=== PATIENT | male | born 1935 | race African-American/Black ===

== ENCOUNTER 2019-03-29 15:57 | Inpatient (IN) | payer MEDICARE, OTHER ==
[~2019-03-29] VITALS: Ht 162.6 cm; Wt 57.9 kg
[2019-03-29] MEDS ORDERED: SOD CHLORIDE 0.9% 1,000 ML IV STA (16:30)
[2019-03-29] MEDS ORDERED: KETOROLAC 15 MG INJ IV STA (16:30)
[2019-03-29] MEDS ORDERED: ACET325T45 PO (16:38)
[2019-03-29] MEDS ORDERED: AMAN100C96 PO (16:38)
[2019-03-29] MEDS ORDERED: MAGN400O19 PO (16:42)
[2019-03-29] MEDS ORDERED: DEXT1DRO7 BOTH EYES (16:42)
[2019-03-29] MEDS ORDERED: BISA10SU55 RC (16:43)
[2019-03-29] MEDS ORDERED: NA P230E RC (16:44)
[2019-03-29] MEDS ORDERED: DOCU-144 PO (16:44)
[2019-03-29] MEDS ORDERED: CYAN100080 PO (16:45)
[2019-03-29] MEDS ORDERED: DICL100G37 TOP (16:45)
[2019-03-29] MEDS ORDERED: DIGO125T19 PO (16:46)
[2019-03-29] MEDS ORDERED: DONE10TA7 PO (16:46)
[2019-03-29] MEDS ORDERED: FINA5TAB4 PO (16:47)
[2019-03-29] MEDS ORDERED: FLUT16SP17 NASAL (16:48)
[2019-03-29] MEDS ORDERED: OMEG-135 PO (16:48)
[2019-03-29] MEDS ORDERED: GUAI-352 PO (16:49)
[2019-03-29] MEDS ORDERED: LISI2.5T59 PO (16:50)
[2019-03-29] MEDS ORDERED: LORA10TA3 PO (16:51)
[2019-03-29] MEDS ORDERED: MELA3TAB17 PO (16:53)
[2019-03-29] MEDS ORDERED: METO2.5T PO (16:54)
[2019-03-29] MEDS ORDERED: OMEP20CA16 PO (16:55)
[2019-03-29] MEDS ORDERED: POLY17PO28 PO (16:55)
[2019-03-29] MEDS ORDERED: METO-448 PO (16:55)
[2019-03-29] MEDS ORDERED: TAMS-14 PO (16:56)
[2019-03-29] MEDS ORDERED: TRAM50TA PO (16:57)
[2019-03-29] MEDS ORDERED: THIA100T56 PO (16:57)
[2019-03-29] MEDS ORDERED: ASC500 PO (16:58)
[2019-03-29] MEDS ORDERED: CHOL100062 PO (16:58)
[2019-03-29] MEDS ORDERED: ASPIRIN 81 MG TAB PO ONE (18:00)
--- NOTE | 2019-03-29 18:01 | ERD ---
ER Documentation Chief Complaint Chief Complaint LEFT SHOULDER PAIN HPI 83-year-old man with history of dementia and Parkinson's brought in by EMS from assisted for left shoulder pain. Patient is difficult to understand the HPI was supplemented by reviewing past medical history, reviewing assisted records, and speaking to EMS. Patient has had no fevers or chills, no vomiting or diarrhea. ROS All systems reviewed and are negative except as per history of present illness. Medications Home Meds Reported Medications Cholecalciferol* (Vitamin D3*) 1,000 Unit Tablet, 2000 UNIT PO DAILY, TAB 03/29/19 Ascorbic Acid (Vitamin C) 500 Mg Tab, 500 MG PO DAILY, TAB 03/29/19 Thiamine* (Vitamin B-1*) 100 Mg Tablet, 100 MG PO DAILY, TAB 03/29/19 Tramadol Hcl* (Ultram*) 50 Mg Tablet, 50 MG PO BID PRN for PAIN, TAB 03/29/19 Tamsulosin Hcl* (Flomax*) 0.4 Mg Cap.er.24h, 0.4 MG PO HS, CAP 03/29/19 Polyethylene Glycol* (Polyethylene Glycol*) 17 Gm Powd.pack, 17 GM PO DAILY, #30 PACKET 03/29/19 Omeprazole* (Omeprazole*) 20 Mg Capsule.dr, 20 MG PO QAM, #30 CAP 03/29/19 Metoprolol Tartrate* (Lopressor*) 25 Mg Tab, 25 MG PO Q12H, #60 TAB HOLD FOR SBP<110 OR HR<60 03/29/19 Metolazone* (Metolazone*) 2.5 Mg Tablet, 2.5 MG PO DAILY, TAB HOLD FOR SBP<110 03/29/19 Melatonin (Melatonin) 3 Mg Tablet.sa, 6 MG PO HS, TAB.SA 03/29/19 Loratadine* (Loratadine*) 10 Mg Tablet, 10 MG PO DAILY, #30 TAB FOR 3 MONTH, STOP DATE 06/26/19 03/29/19 Lisinopril* (Lisinopril*) 2.5 Mg Tablet, 2.5 MG PO DAILY, #30 TAB HOLD IF SBP BELOW 110 03/29/19 Guaifenesin (HILL-[place]USSIN) 100 Mg/5 Ml Liquid, 100 MG PO Q4H 03/29/19 Fluticasone Propionate* (Fluticasone Propionate* Nasal) 50 Mcg/[place] - 16 Gm [place].susp, 2 SPRAYS NASAL DAILY, #1 BOTTLE TO EACH NOSTRIL FOR 3 MONTH, STOP DATE 06/26/19 03/29/19 [place]-3 Fatty Acids/Fish Oil (Fish Oil 1,000 mg Capsule) 1 Each Capsule, 1 EACH PO DAILY, CAP 03/29/19 Finasteride* (Finasteride*) 5 Mg Tablet, 5 MG PO QHS, TAB 03/29/19 Donepezil* (Donepezil*) 10 Mg Tablet, 10 MG PO QHS, #30 TAB 03/29/19 Digoxin* (Digox*) 125 Mcg Tablet, 0.125 MG PO DAILY, TAB 03/29/19 Diclofenac Sodium* (Voltaren* Gel) 1% -100 Gm Gel, 2 GM TOP Q12H, #1 TUB 03/29/19 Cyanocobalamin* (Vitamin B-12*) 1,000 Mcg Tablet.sa, 1000 MCG PO DAILY, TAB 03/29/19 Docusate Sodium* (Colace*) 100 Mg Capsule, 100 MG PO BID, #60 CAP 03/29/19 Na Phos,M-B/Na Phos,Di-Ba (Fleet Enema Extra) 230 Ml Enema, 118 ML RC Q 3D, ENEMA 03/29/19 Bisacodyl (Dulcolax) 10 Mg Supp.rect, 10 MG RC NEEDED, SUPP.RECT 03/29/19 Magnesium Hydroxide* (Milk Of Magnesia*) 400 Mg/5 Ml Oral.susp, 30 ML PO Q24H PRN for NEEDED, ML 03/29/19 Dextran 70/Hypromellose/Pf (ARTIFICIAL TEARS DROPS) 1 Each Droperette, 1 EACH BOTH EYES TID 03/29/19 Amantadine Hcl* (Amantadine Hcl*) 100 Mg Capsule, 100 MG PO Q12H, #60 CAP 03/29/19 Acetaminophen* (Acetaminophen*) 325 Mg Tablet, 650 MG PO Q6H PRN for PAIN LEVEL 4-7/10, #30 TAB 03/29/19 Allergies Allergies: Coded Allergies: simvastatin (Unverified Allergy, Unknown, 03/29/19) PMhx/Soc Dementia, hypertension, CAD, Parkinson's Hx Cardiac Disorders: Yes (cad, htn, dvt, chf) Hx Alcohol Use: No (unk) Hx Substance Use: No (unk) Hx Tobacco Use: No (unk) Smoking Status: Never smoker FmHx Family History: No diabetes Physical Exam Vitals Vital Signs Date Temp Pulse Resp B/P (MAP) Pulse Ox O2 O2 Flow FiO2 Time Delivery Rate 03/29/19 98.1 84 18 95/45 (62) 99 16:25 Physical Exam Const: Moderate discomfort, afebrile Resp: Clear to auscultation bilaterally Cardio: Regular rate and rhythm, no murmurs Abd: Soft, non tender, non distended. Normal bowel sounds Skin: No petechiae or rashes Back: No midline or flank tenderness Ext: No cyanosis, or edema, distal pulses equal bilateral, calves symmetrical, mild tenderness over the left anterior shoulder without deformity Neur: Eyes open, garbled speech, moving all extremities, pupils equal round reactive to light Psych: Normal Mood and Affect Result Diagram: 03/30/19 0245 03/30/19 0245 Results 24 hrs Laboratory Tests Test 03/29/19 16:51 White Blood Count 6.8 10^3/ul Red Blood Count 5.49 10^6/ul Hemoglobin 14.0 g/dl Hematocrit 41.6 % Mean Corpuscular Volume 75.8 fl Mean Corpuscular Hemoglobin 25.5 pg Mean Corpuscular Hemoglobin Concent 33.7 g/dl Red Cell Distribution Width 19.8 % Platelet Count 127 10^3/UL Mean Platelet Volume 10.0 fl Immature Granulocytes % 0.700 % Neutrophils % 82.0 % Lymphocytes % 5.6 % Monocytes % 10.6 % Eosinophils % 0.1 % Basophils % 1.0 % Nucleated Red Blood Cells % 1.0 /100WBC Immature Granulocytes # 0.050 10^3/ul Neutrophils # 5.5 10^3/ul Lymphocytes # 0.4 10^3/ul Monocytes # 0.7 10^3/ul Eosinophils # 0.0 10^3/ul Basophils # 0.1 10^3/ul Nucleated Red Blood Cells # 0.1 10^3/ul Sodium Level 136 mmol/L Potassium Level 3.5 mmol/L Chloride Level 99 mmol/L Carbon Dioxide Level 27 mmol/L Anion Gap 10 Blood Urea Nitrogen 64 mg/dl Creatinine 1.50 mg/dl Est Glomerular Filtrat Rate mL/min mL/min Glucose Level 176 mg/dl Calcium Level 8.3 mg/dl Total Bilirubin 0.6 mg/dl Direct Bilirubin 0.00 mg/dl Indirect Bilirubin 0.6 mg/dl Aspartate Amino Transf (AST/SGOT) 43 IU/L Alanine Aminotransferase (ALT/SGPT) 38 IU/L Alkaline Phosphatase 136 IU/L Troponin I 0.176 ng/ml Total Protein 6.0 g/dl Albumin 2.7 g/dl Globulin 3.30 g/dl Albumin/Globulin Ratio 0.81 Lipase 15 U/L Current Medications Medications Dose Sig/John Start Time Status Last (Trade) Ordered Route PRN Stop Time Admin Dose Reason Admin Sodium 1,000 ml @ Q1H STAT 03/29/19 DC 03/29/19 Chloride 1,000 mls/hr IV 16:30 17:09 03/29/19 17:29 Ketorolac 15 mg ONCE STAT 03/29/19 DC 03/29/19 Tromethamine IV 16:30 17:08 (Toradol) 03/29/19 16:31 Aspirin 324 mg ONCE ONCE 03/29/19 DC 03/29/19 (Aspirin) PO 18:00 18:30 03/29/19 18:01 Procedures/MDM IV line was established patient was placed on quality assurance monitor chassis rhythm strip revealed a sinus rhythm at about 80 bpm with upright P and T waves. Patient was afebrile EKG performed, read by me revealed an atrial fibrillation rate controlled 84 bpm, right axis deviation, right bundle branch block, no concerning ST elevations or depressions noted Chest X-ray 1V Interpreted by me: Soft Tissue: No acute abnormalities Bones: No acute abnormalities Mediastinum/Cardiac Silhouette/Lungs: No acute abnormalities X-ray left shoulder 3V Interpreted by me: Bones: No fracture Joints: Osteoarthritic changes Foreign body: None I administered aspirin 324 mg p.o. for cardioprotective measures, 1 L normal saline IV for dehydration, Toradol 15 mg IV x1 for pain CBC was normal, electrolytes revealed dehydration with a BUN/creatinine 64/1.5, liver function test unremarkable, troponin positive at 0.2. Patient will be admitted to telemetry setting for continued medical management cardiology consultation Departure Diagnosis: Primary Impression: Non-STEMI (non-ST elevated myocardial infarction) Additional Impressions: Acute dehydration Atrial fibrillation Atrial fibrillation type: unspecified Qualified Codes: I48.91 - Unspecified atrial fibrillation Acute kidney injury Osteoarthritis, shoulder Osteoarthritis type: primary Laterality: left Qualified Codes: M19.012 - Primary osteoarthritis, left shoulder Condition: Fair SULAIMAN BELTRAN MD Mar 29, 2019 18:01
[2019-03-29] MEDS ORDERED: AMANTADINE 100 MG CAP PO SCH (19:30)
[2019-03-29] MEDS ORDERED: traMADol 50 MG TAB PO PRN (19:30)
[2019-03-29] MEDS ORDERED: ACETAMINOPHEN 325 MG TAB PO PRN (19:30)
[2019-03-29] MEDS: METOPROLOL 25 MG TAB PO SCH (19:30)
[2019-03-29] MEDS ORDERED: NACL 0.9% 3 ML SYG IV SCH (19:30)
[2019-03-29] MEDS ORDERED: BISACODYL 10 MG SUPP PR PRN (19:30)
[2019-03-29] MEDS ORDERED: ONDANSETRON 4 MG INJ IV PRN (19:30)
[2019-03-29 19:46] VITALS: PULSE 94
[2019-03-29 19:50] VITALS: Ht 162.6 cm; Wt 57.9 kg
--- NOTE | 2019-03-29 19:55 | HP ---
Date/Time of Note Date/Time of Note DATE: 03/29/19 TIME: 19:35 Assessment/Plan VTE Prophylaxis SCD applied (from Nsg): No SCD contraindicated: bilateral LE trauma Pharmacological prophylaxis: LMWH Lines/Catheters IV Catheter Type (from Nrsg): Saline Lock Assessment/Plan Assessment/Plan 83 yo man Parkinsons and dementia presents from SNF with likely NSTEMI #NSTEMI - Elevated trop. Will continue to trend. EKG with RBBB and inferior Q waves. - Difficult to tell if patient is symptomatic, cannot understand speech. - ASA 325 x1, 81mg daily. - Lovenox 1mg/kg q12h - Statin allergy reported; will hold off until more information. - Consulted Dr. Mckeon. - Patient is full code. #Shoulder pain - In paper chart is a normal XR from 03/26/19 - However now L shoulder XR shows high-riding humerus; possible rotator cuff injury - However no fracture. #HTN - Cont home meds #BPH -Cont home meds #A fib - Not currently on anticoagulation, possibly due to frequent falls. - Rate controlled. #dementia - Cont donepezil DVT: lovenox GI: PPI BID Result Diagram: 03/29/19 1651 03/29/19 1651 HPI/ROS Admit Date/Time Admit Date/Time 29 March 2019 Hx of Present Illness Mr. Lindo is an 83 yo man with dementia and Parkinson's coming from a SNF with L shoulder pain. The patient has slurred speech and is difficult to understand. History taken from his Jodi at bedside. Apparently the patient was previously at a [facility] and was transferred to [facility] about 6 weeks ago; and she has been concerned about his quality of care. 1 month ago he had a L shoulder XR (which was normal) but the was unable to determine why this was checked. She last saw him one week ago on Saturday and he was very sleepy, not very responsive. Today, Jodi came to visit with the patient's 6 yo daughter. She jumped on him and he winced in pain. Also he had new bilateral anterior damon abrasions. Jodi asked nursing staff if he had fallen or had another injury; and did not get a response. One nurse told her furtively she should take him to the hospital "to get checked out" so Jodi called 911. In the ED the patient was afebrile, BP 95/45, saturating on room air. Initial trop was 0.176, EKG with RBBB and inferior lead Q waves. Spoke about code status with Jodi. She said the patient had previously said he wanted to be full code before his cognitive decline and she wanted to respect that. The patient's son in [place] is actually power of estate planning attorney. ROS Subjective hx not possible: pt non-verbal PMH/Family/Social Past Medical History A fib dyslipidemia HTN Parkinsons Dementia with Lewy bodies BPH with lower urinary tract symptoms CHF Medications Current Medications Sodium Chloride 1,000 ml @ 125 mls/hr Q8H IV ; Start 03/29/19 at 19:12 IV Flush (NS 3 ml) 3 ml PER PROTOCOL IV ; Start 03/29/19 at 19:30 Ondansetron HCl (Zofran Inj) 4 mg Q6H PRN IV NAUSEA/VOMITING; Start 03/29/19 at 19:30 Acetaminophen (Tylenol Tab) 650 mg Q6H PRN PO .PAIN 1-3 OR TEMP; Start 03/29/19 at 19:30 Pantoprazole (Protonix Tab) 40 mg DAILY@06 PO ; Start 03/30/19 at 06:00 Enoxaparin Sodium (Lovenox) 30 mg DAILY SC ; Start 03/30/19 at 09:00 Amantadine HCl (Symmetrel) 100 mg Q12H PO ; Start 03/29/19 at 19:30 Ascorbic Acid (Vitamin C) 500 mg DAILY PO ; Start 03/30/19 at 09:00 Bisacodyl (Dulcolax Supp) 10 mg DAILY PRN [place] constipation; Start 03/29/19 at 19:30 Cholecalciferol (Vitamin D) 2,000 unit DAILY PO ; Start 03/30/19 at 09:00; Status UNV Cyanocobalamin (Vitamin B12) 1,000 mcg DAILY PO ; Start 03/30/19 at 09:00 Digoxin (Digoxin) 0.125 mg DAILY@1300 PO ; Start 03/30/19 at 13:00 Docusate Sodium (Colace) 100 mg BID PO ; Start 03/29/19 at 21:00 Donepezil HCl (Aricept) 10 mg QHS PO ; Start 03/29/19 at 21:00 Finasteride (Proscar) 5 mg QHS PO ; Start 03/29/19 at 21:00 Lisinopril (Zestril) 2.5 mg DAILY PO ; Start 03/30/19 at 09:00 Metolazone (Zaroxolyn) 2.5 mg DAILY PO ; Start 03/30/19 at 09:00 Metoprolol Tartrate (Lopressor) 25 mg Q12H PO ; Start 03/29/19 at 19:30 Tamsulosin HCl (Flomax) 0.4 mg HS PO ; Start 03/29/19 at 21:00 Thiamine HCl (Vitamin B1) 100 mg DAILY PO ; Start 03/30/19 at 09:00 Tramadol HCl (Ultram) 50 mg BID PRN PO PAIN; Start 03/29/19 at 19:30 Miscellaneous Information 6 mg HS PO ; Start 03/29/19 at 21:00; Status UNV Coded Allergies: simvastatin (Unverified Allergy, Unknown, 03/29/19) Past Surgical History Unknown Social History Alcohol Use: none Smoking Status: Never smoker Drug Use: none Exam/Review of Systems Vital Signs Vitals Vital Signs Date Temp Pulse Resp B/P (MAP) Pulse Ox O2 O2 Flow FiO2 Time Delivery Rate 03/29/19 98.1 87 20 92/63 (73) 94 Nasal 18:52 Cannula Exam Exam Gen: Frail appearing elderly man Eyes: Miotic pupils minimally reactive. HEENT: Dry mucous membranes, white plaques on buccae, tongue erythema Neck: No lymphadenopathy, no JVD Card: Regular rate and rhythm, no murmurs Pulm: Clear to auscultation bilaterally Abd: Soft, nontender, nondistended. Ext: No cyanosis/clubbing or edema. Not cooperative with shoulder exam; actively resists ROM bilaterally. There is no tenderness. Skin: Melanosis of the skin, especially face. He also has deep abrasions bilaterally anterior tibiae. Neuro: He is awake and responsive, follows commands. Speech is very slurred and incomprehensible to me or . KAYLIN JAMES MD Mar 29, 2019 19:49
[2019-03-29 20:00] VITALS: BP 83/54; PULSE 85; PULSE 88; RESP 18
[2019-03-29] MEDS: TAMSULOSIN (SR) 0.4 MG CAP PO SCH (21:00)
[2019-03-29] MEDS: FINASTERIDE 5 MG TAB PO SCH (21:00)
[2019-03-29] MEDS: DONEPEZIL 10 MG TAB PO SCH (21:00)
[2019-03-29] MEDS: MELATONIN 3 MG TABLET PO SCH (21:00)
[2019-03-29] MEDS: DOCUSATE SODIUM 100 MG CAP PO SCH (21:00)
[2019-03-29] MEDS ORDERED: hydrALAzine 20 MG INJ IV PRN (22:00)
[2019-03-29] MEDS ORDERED: SOD CHLORIDE 0.9% 500 ML IV ONE (22:00)
[2019-03-29] MEDS: ENOXAPARIN 80 MG/0.8 ML SYG SC SCH (22:56)
[2019-03-30] VITALS (10 sets, daily range): BP systolic 93–137; BP diastolic 63–94; PULSE 75–104; RESP 17–20
[2019-03-30] MEDS: SOD CHLORIDE 0.9% 1,000 ML IV SCH ×2 (00:52→08:47)
[2019-03-30] MEDS: ALBUMIN HUMAN 25% 100 ML IV SCH ×2 (00:53→01:54)
[2019-03-30] MEDS: DICLOFENAC SODIUM 1% GEL 100 GM TUBE TP SCH ×5 (01:53→22:32)
--- NOTE | 2019-03-30 05:58 | CONS ---
Assessment/Plan Assessment/Plan Hospital Course (Demo Recall) 83 yo presenting with left shoulder pain and mild flat elevation of troponin. Determination of cause of troponin elevation is difficult as patient cannot provide history, but given the flat pattern of elevation would point to either a type 2 demand-mediated elevation or a small NSTEMI. Impression: Elevated troponin - type 2 NM vs small thrombotic NSTEMI Atrial fibrillation, slightly rapid at present, pt unable to take po meds due to swallowing concerns Recommendations: Given his advanced dementia, and stable cardiac status at present, would lean toward conservative therapy. Agree with enoxaparin, continue beta blockade IV for now as he is NPO. Continue ASA. Consider anticoagulant therapy with apixaban, he is not on anticoagulation as an outpatient, would be helpful to clarify rationale of why no anticoagulation chronically Also would clarify simvastatin "allergy" as to what that reaction was. If not a serious reaction, which is most likely, would initiate statin therapy Echo ordered Consultation Date/Type/Reason Admit Date/Time 29 March 2019 Date of Consultation: Mar 30, 2019 Type of Consult Cardiology Reason for Consultation elevated troponins Requesting Provider: KAYLIN JAMES MD Date/Time of Note DATE: 03/30/19 TIME: 05:43 Hx of Present Illness 83 yo with advanced Parkinson's disease who cannot provide any meaningful history, presents from SNF due to left shoulder pain. Per Dr. James's notes, a young family member jumped on the patient and he winced in shoulder pain. Per [facility] note, he had an xray of the shoulder on 03/26 which did not show fracture. Patient indicates he's in pain, but difficult to localize it, is tender to palpation of the left shoulder. Subjective hx not possible: pt non-verbal Past Medical History Medical History: high cholesterol, hypertension, other (dementia, Parkinson's, BPH) Home Meds Reported Medications Cholecalciferol* (Vitamin D3*) 1,000 Unit Tablet, 2000 UNIT PO DAILY, TAB 03/29/19 Ascorbic Acid (Vitamin C) 500 Mg Tab, 500 MG PO DAILY, TAB 03/29/19 Thiamine* (Vitamin B-1*) 100 Mg Tablet, 100 MG PO DAILY, TAB 03/29/19 Tramadol Hcl* (Ultram*) 50 Mg Tablet, 50 MG PO BID PRN for PAIN, TAB 03/29/19 Tamsulosin Hcl* (Flomax*) 0.4 Mg Cap.er.24h, 0.4 MG PO HS, CAP 03/29/19 Polyethylene Glycol* (Polyethylene Glycol*) 17 Gm Powd.pack, 17 GM PO DAILY, #30 PACKET 03/29/19 Omeprazole* (Omeprazole*) 20 Mg Capsule.dr, 20 MG PO QAM, #30 CAP 03/29/19 Metoprolol Tartrate* (Lopressor*) 25 Mg Tab, 25 MG PO Q12H, #60 TAB HOLD FOR SBP<110 OR HR<60 03/29/19 Metolazone* (Metolazone*) 2.5 Mg Tablet, 2.5 MG PO DAILY, TAB HOLD FOR SBP<110 03/29/19 Melatonin (Melatonin) 3 Mg Tablet.sa, 6 MG PO HS, TAB.SA 03/29/19 Loratadine* (Loratadine*) 10 Mg Tablet, 10 MG PO DAILY, #30 TAB FOR 3 MONTH, STOP DATE 06/26/19 03/29/19 Lisinopril* (Lisinopril*) 2.5 Mg Tablet, 2.5 MG PO DAILY, #30 TAB HOLD IF SBP BELOW 110 03/29/19 Guaifenesin ([place]IN) 100 Mg/5 Ml Liquid, 100 MG PO Q4H 03/29/19 Fluticasone Propionate* (Fluticasone Propionate* Nasal) 50 Mcg/[place] - 16 Gm [place].susp, 2 SPRAYS NASAL DAILY, #1 BOTTLE TO EACH NOSTRIL FOR 3 MONTH, STOP DATE 06/26/19 03/29/19 [place]-3 Fatty Acids/Fish Oil (Fish Oil 1,000 mg Capsule) 1 Each Capsule, 1 EACH PO DAILY, CAP 03/29/19 Finasteride* (Finasteride*) 5 Mg Tablet, 5 MG PO QHS, TAB 03/29/19 Donepezil* (Donepezil*) 10 Mg Tablet, 10 MG PO QHS, #30 TAB 03/29/19 Digoxin* (Digox*) 125 Mcg Tablet, 0.125 MG PO DAILY, TAB 03/29/19 Diclofenac Sodium* (Voltaren* Gel) 1% -100 Gm Gel, 2 GM TOP Q12H, #1 TUB 03/29/19 Cyanocobalamin* (Vitamin B-12*) 1,000 Mcg Tablet.sa, 1000 MCG PO DAILY, TAB 03/29/19 Docusate Sodium* (Colace*) 100 Mg Capsule, 100 MG PO BID, #60 CAP 03/29/19 Na Phos,M-B/Na Phos,Di-Ba (Fleet Enema Extra) 230 Ml Enema, 118 ML RC Q 3D, ENEMA 03/29/19 Bisacodyl (Dulcolax) 10 Mg Supp.rect, 10 MG RC NEEDED, SUPP.RECT 03/29/19 Magnesium Hydroxide* (Milk Of Magnesia*) 400 Mg/5 Ml Oral.susp, 30 ML PO Q24H PRN for NEEDED, ML 03/29/19 Dextran 70/Hypromellose/Pf (ARTIFICIAL TEARS DROPS) 1 Each Droperette, 1 EACH BOTH EYES TID 03/29/19 Amantadine Hcl* (Amantadine Hcl*) 100 Mg Capsule, 100 MG PO Q12H, #60 CAP 03/29/19 Acetaminophen* (Acetaminophen*) 325 Mg Tablet, 650 MG PO Q6H PRN for PAIN LEVEL 4-7/10, #30 TAB 03/29/19 Medications Current Medications Sodium Chloride 1,000 ml @ 50 mls/hr Q20H IV Last administered on 03/30/19at 00:52; Admin Dose 50 MLS/HR; Start 03/29/19 at 19:12 IV Flush (NS 3 ml) 3 ml PER PROTOCOL IV ; Start 03/29/19 at 19:30 Ondansetron HCl (Zofran Inj) 4 mg Q6H PRN IV NAUSEA/VOMITING; Start 03/29/19 at 19:30 Acetaminophen (Tylenol Tab) 650 mg Q6H PRN PO .PAIN 1-3 OR TEMP; Start 03/29/19 at 19:30; Status Hold Amantadine HCl (Symmetrel) 100 mg Q12H PO ; Start 03/29/19 at 19:30; Status Hold Ascorbic Acid (Vitamin C) 500 mg DAILY PO ; Start 03/30/19 at 09:00; Status Future Hold Bisacodyl (Dulcolax Supp) 10 mg DAILY PRN [place] constipation; Start 03/29/19 at 19:30 Cholecalciferol (Vitamin D) 2,000 unit DAILY PO ; Start 03/30/19 at 09:00; Status Future Hold Cyanocobalamin (Vitamin B12) 1,000 mcg DAILY PO ; Start 03/30/19 at 09:00; Status Future Hold Digoxin (Digoxin) 0.125 mg DAILY@1300 PO ; Start 03/30/19 at 13:00; Status Future Hold Docusate Sodium (Colace) 100 mg BID PO ; Start 03/29/19 at 21:00 Donepezil HCl (Aricept) 10 mg QHS PO ; Start 03/29/19 at 21:00 Finasteride (Proscar) 5 mg QHS PO ; Start 03/29/19 at 21:00 Lisinopril (Zestril) 2.5 mg DAILY PO ; Start 03/30/19 at 09:00; Status Future Hold Metolazone (Zaroxolyn) 2.5 mg DAILY PO ; Start 03/30/19 at 09:00; Status Future Hold Metoprolol Tartrate (Lopressor) 25 mg Q12H PO ; Start 03/29/19 at 19:30; Status Future Hold Tamsulosin HCl (Flomax) 0.4 mg HS PO ; Start 03/29/19 at 21:00 Thiamine HCl (Vitamin B1) 100 mg DAILY PO ; Start 03/30/19 at 09:00 Tramadol HCl (Ultram) 50 mg BID PRN PO PAIN; Start 03/29/19 at 19:30 Melatonin (Melatonin) 6 mg HS PO ; Start 03/29/19 at 21:00 Enoxaparin Sodium (Lovenox) 65 mg Q12 SC Last administered on 03/29/19at 22:56; Admin Dose 65 MG; Start 03/29/19 at 21:00 Aspirin (Aspirin) 81 mg DAILY PO ; Start 03/30/19 at 09:00; Status Future Hold Pantoprazole (Protonix Tab) 40 mg BID PO ; Start 03/30/19 at 06:00; Status Future Hold Hydralazine HCl (Apresoline) 10 mg Q4H PRN IV ELEVATED BLOOD PRESSURE; Start 03/29/19 at 22:00 Diclofenac Sodium (Voltaren 1% Gel) 2 gm QID TP Last administered on 03/30/19at 01:53; Admin Dose 2 GM; Start 03/30/19 at 00:00 Aspirin (Aspirin) 81 mg DAILY [place] ; Start 03/30/19 at 09:00 Metoprolol Tartrate (Lopressor) 2.5 mg Q6 IV ; Start 03/30/19 at 06:00 Digoxin (Digoxin) 125 mcg DAILY@13 IV ; Start 03/30/19 at 13:00 Allergies: Coded Allergies: simvastatin (Unverified Allergy, Unknown, 03/29/19) Past Surgical History Past Surgical Hx: other (unknown) Family History Significant Family History: other (unknown) Social History Alcohol Use: none Smoking Status: Never smoker Drug Use: none Exam/Review of Systems Vital Signs Vitals Vital Signs Date Temp Pulse Resp B/P (MAP) Pulse Ox O2 O2 Flow FiO2 Time Delivery Rate 03/30/19 95 04:00 03/30/19 97.4 19 93/63 (73) 95 00:00 03/29/19 Nasal 2.0 20:00 Cannula Exam Constitutional: alert, non-verbal Psych: nl mood/affect Head: normocephalic, atraumatic Eyes: EOMI, nl lids, nl sclera ENMT: nl external ears & nose Neck: supple; No jvd, No bruits Respiratory: clear to auscultation, normal air movement Cardiovascular: irregular rhythm; No nl pulses (diminished DP pulses bilaterally), No murmurs/extra sounds Gastrointestinal: soft, nl liver, spleen, non-tender Musculoskeletal: other (left shoulder swollen, tender to touch) Extremities: No edema Neurological: other (awake, alert, vocalizes but inchoerent speech) Skin: nl turgor Labs Result Diagram: 03/30/19 0245 03/30/19 0245 Results 24hrs Laboratory Tests Test 03/29/19 16:51 03/29/19 21:04 03/30/19 02:45 White Blood Count 6.8 5.2 # Red Blood Count 5.49 5.61 Hemoglobin 14.0 14.0 Hematocrit 41.6 L 43.2 Mean Corpuscular Volume 75.8 L 77.0 L Mean Corpuscular Hemoglobin 25.5 L 25.0 L Mean Corpuscular Hemoglobin Concent 33.7 32.4 Red Cell Distribution Width 19.8 H 19.9 H Platelet Count 127 L 117 L Mean Platelet Volume 10.0 10.8 H Immature Granulocytes % 0.700 H 1.400 H Neutrophils % 82.0 H Lymphocytes % 5.6 L Monocytes % 10.6 Eosinophils % 0.1 Basophils % 1.0 Nucleated Red Blood Cells % 1.0 H 1 H Immature Granulocytes # 0.050 H 0.070 H Neutrophils # 5.5 Lymphocytes # 0.4 L Monocytes # 0.7 Eosinophils # 0.0 Basophils # 0.1 Nucleated Red Blood Cells # 0.1 H Sodium Level 136 143 Potassium Level 3.5 4.6 Chloride Level 99 104 Carbon Dioxide Level 27 25 Anion Gap 10 14 H Blood Urea Nitrogen 64 H 61 H Creatinine 1.50 H 1.42 H Est Glomerular Filtrat Rate mL/min Glucose Level 176 90 # Calcium Level 8.3 L 8.5 Total Bilirubin 0.6 0.8 Direct Bilirubin 0.00 0.00 Indirect Bilirubin 0.6 0.8 Aspartate Amino Transf (AST/SGOT) 43 55 H Alanine Aminotransferase (ALT/SGPT) 38 36 Alkaline Phosphatase 136 H 143 H Troponin I 0.176 *H 0.199 *H 0.197 *H Total Protein 6.0 L 6.6 Albumin 2.7 L 3.2 L Globulin 3.30 H 3.40 H Albumin/Globulin Ratio 0.81 0.94 Lipase 15 L Segmented Neutrophils % (Manual) 46 Band Neutrophils % (Manual) 30 H Lymphocytes % (Manual) 12 L Monocytes % (Manual) 11 Eosinophils % (Manual) 1 Neutrophils # (Manual) 2.5 Band Neutrophils # 1.5 H Lymphocytes (Manual) 0.6 L Monocytes # (Manual) 0.5 Platelet Estimate DECREASED Giant Platelets 6 H Polychromasia 3+ Poikilocytosis 3+ Anisocytosis 2+ Macrocytosis 1+ Hemoglobin A1c 8.1 H Phosphorus Level 5.1 H Magnesium Level 1.8 Creatinine Kinase MB (Mass) 8.43 H Triglycerides Level 50 Cholesterol Level < 50 L LDL Cholesterol, Calculated HDL Cholesterol 14 L Cholesterol/HDL Ratio Thyroid Stimulating Hormone (TSH) 2.720 Imaging Imaging atrial fibrillation at 84 bpm, LBBB, intermittent aberrant conduction, inferior infarct age undetermined Medications Medications Current Medications Sodium Chloride 1,000 ml @ 50 mls/hr Q20H IV Last administered on 03/30/19at 00:52; Admin Dose 50 MLS/HR; Start 03/29/19 at 19:12 IV Flush (NS 3 ml) 3 ml PER PROTOCOL IV ; Start 03/29/19 at 19:30 Ondansetron HCl (Zofran Inj) 4 mg Q6H PRN IV NAUSEA/VOMITING; Start 03/29/19 at 19:30 Acetaminophen (Tylenol Tab) 650 mg Q6H PRN PO .PAIN 1-3 OR TEMP; Start 03/29/19 at 19:30; Status Hold Amantadine HCl (Symmetrel) 100 mg Q12H PO ; Start 03/29/19 at 19:30; Status Hold Ascorbic Acid (Vitamin C) 500 mg DAILY PO ; Start 03/30/19 at 09:00; Status Future Hold Bisacodyl (Dulcolax Supp) 10 mg DAILY PRN [place] constipation; Start 03/29/19 at 1 9:30 Cholecalciferol (Vitamin D) 2,000 unit DAILY PO ; Start 03/30/19 at 09:00; Status Future Hold Cyanocobalamin (Vitamin B12) 1,000 mcg DAILY PO ; Start 03/30/19 at 09:00; Status Future Hold Digoxin (Digoxin) 0.125 mg DAILY@1300 PO ; Start 03/30/19 at 13:00; Status Future Hold Docusate Sodium (Colace) 100 mg BID PO ; Start 03/29/19 at 21:00 Donepezil HCl (Aricept) 10 mg QHS PO ; Start 03/29/19 at 21:00 Finasteride (Proscar) 5 mg QHS PO ; Start 03/29/19 at 21:00 Lisinopril (Zestril) 2.5 mg DAILY PO ; Start 03/30/19 at 09:00; Status Future Hold Metolazone (Zaroxolyn) 2.5 mg DAILY PO ; Start 03/30/19 at 09:00; Status Future Hold Metoprolol Tartrate (Lopressor) 25 mg Q12H PO ; Start 03/29/19 at 19:30; Status Future Hold Tamsulosin HCl (Flomax) 0.4 mg HS PO ; Start 03/29/19 at 21:00 Thiamine HCl (Vitamin B1) 100 mg DAILY PO ; Start 03/30/19 at 09:00 Tramadol HCl (Ultram) 50 mg BID PRN PO PAIN; Start 03/29/19 at 19:30 Melatonin (Melatonin) 6 mg HS PO ; Start 03/29/19 at 21:00 Enoxaparin Sodium (Lovenox) 65 mg Q12 SC Last administered on 03/29/19at 22:56; Admin Dose 65 MG; Start 03/29/19 at 21:00 Aspirin (Aspirin) 81 mg DAILY PO ; Start 03/30/19 at 09:00; Status Future Hold Pantoprazole (Protonix Tab) 40 mg BID PO ; Start 03/30/19 at 06:00; Status Future Hold Hydralazine HCl (Apresoline) 10 mg Q4H PRN IV ELEVATED BLOOD PRESSURE; Start 03/29/19 at 22:00 Diclofenac Sodium (Voltaren 1% Gel) 2 gm QID TP Last administered on 03/30/19at 01:53; Admin Dose 2 GM; Start 03/30/19 at 00:00 Aspirin (Aspirin) 81 mg DAILY [place] ; Start 03/30/19 at 09:00 Metoprolol Tartrate (Lopressor) 2.5 mg Q6 IV ; Start 03/30/19 at 06:00 Digoxin (Digoxin) 125 mcg DAILY@13 IV ; Start 03/30/19 at 13:00 NIA JIMENEZ Mar 30, 2019 05:55
[2019-03-30] MEDS ORDERED: PANTOPRAZOLE (EC) 40 MG TAB PO SCH ×2 (06:00)
[2019-03-30] MEDS: METOPROLOL 5 MG INJ IV SCH ×3 (06:33→17:51)
[2019-03-30] MEDS: METOPROLOL 25 MG TAB PO SCH (07:30)
[2019-03-30] MEDS: DOCUSATE SODIUM 100 MG CAP PO SCH ×2 (08:18→21:00)
[2019-03-30] MEDS: THIAMINE 100 MG TAB PO SCH (08:19)
[2019-03-30] MEDS: ASPIRIN 300 MG SUPP PR SCH (08:32)
[2019-03-30] MEDS: ENOXAPARIN 80 MG/0.8 ML SYG SC SCH ×2 (08:47→22:36)
[2019-03-30] MEDS ORDERED: ASCORBIC ACID 500 MG TAB PO SCH (09:00)
[2019-03-30] MEDS ORDERED: ASPIRIN 81 MG TAB PO SCH (09:00)
[2019-03-30] MEDS ORDERED: METOLAZONE 2.5 MG TAB PO SCH (09:00)
[2019-03-30] MEDS ORDERED: CHOLECALCIFEROL 2,000 UNIT CAP PO SCH (09:00)
[2019-03-30] MEDS ORDERED: LISINOPRIL 5 MG TAB PO SCH (09:00)
[2019-03-30] MEDS ORDERED: CYANOCOBALAMIN 500 MCG TAB PO SCH (09:00)
[2019-03-30] MEDS ORDERED: ENOXAPARIN 30 MG/0.3 ML SYG SC SCH (09:00)
[2019-03-30] MEDS ORDERED: DIGOXIN 0.125 MG TAB PO SCH (13:00)
[2019-03-30] MEDS: DIGOXIN 500 MCG INJ IV SCH (13:09)
--- NOTE | 2019-03-30 14:07 | RADRPT ---
Echocardiogram Report Patient Name: SUNG FRANKLINPatient ID: [id number] : [id number] (83y 11m)Study Date: 03/30/2019 7:21:44 AM Gender: MAccession #: [id number] Tech: Kota Arvizu [facility] Location: 522 Ref.Physician: SIABEL MCKEON Height(Cm): BSA: Weight(Kg): Quality: AdequateOrder Physician: ISABEL MCKEON Account #: Procedures: Echocardiographic Report: Transthoracic echocardiogram with complete 2D, M-Mode, and doppler examination. Indications: Elevated troponin. Measurements: 2D/M Mode Doppler Measurement Value Normal Range Measurement Value Normal Range LVIDd 2D 4.8 [ 4.2 - 5.8 ] cm ZARI VTI 1.1 [ 2.0 - 4.0 ] cm2 LVIDs 2D 4.1 [ 2.5 - 4.0 ] cm AV Mean Braulio 1.6 [ 70.0 - 90.0 ] cm/sec LVPWd 2D 1.4 [ 0.6 - 1.0 ] cm AV Mean PG 12.0 [ 2.0 - 4.0 ] mmHg IVSd 2D 1.2 [ 0.6 - 1.0 ] cm AV VTI 38.9 cm AoR Diam 2D 3.0 [ 2.6 - 3.4 ] cm LVOT Mean Braulio 0.5 [ 60.0 - 80.0 ] cm/sec EDV 2D 110.0 [ 62.0 - 150.0 ] ml LVOT Mean PG 1.0 [ 1.0 - 3.0 ] mmHg ESV 2D 75.9 [ 21.0 - 61.0 ] ml LVOT Peak Braulio 0.8 [ 70.0 - 110.0 ] cm/sec EF 2D 31.0 [ 52.0 - 72.0 ] percent LVOT Peak PG 3.0 [ 2.0 - 6.0 ] mmHg LA Dimen 2D 4.2 [ 3.0 - 4.0 ] cm LVOT VTI 12.7 [ 20.0 - 30.0 ] cm LVOT Diam 2.1 [ 2.3 - 2.9 ] cm TR Peak Braulio 3.3 [ 100.0 - 280.0 ] cm/sec TR Peak PG 45.0 mmHg RVSP 60.0 [ 10.0 - 36.0 ] mmHg RA Pressure 15.0 mmHg Findings: Left Ventricle: Normal left ventricular cavity size. Moderate concentric left ventricular hypertrophy. Severe global left ventricular systolic dysfunction. Ejection fraction is visually estimated at 25 %. Right Ventricle: Moderate enlargement of right ventricle. Severe right ventricular hypokinesis. Left Atrium: There is mild enlargement of left atrium. Right Atrium: There is severe enlargement of right atrium. Mitral Valve: Mitral valve leaflets appear mildly thickened. Mild mitral annular calcification. Moderate mitral valve regurgitation. Aortic Valve: At least moderate aortic stenosis with calculated valve area of 1.1 cm2. Aortic valve Max velocity 2.15 m/sec. Max PG 19.00 mmHg. Mean PG 12.00 mmHg. Trace aortic valve regurgitation. Tricuspid Valve: The estimated Peak RVSP is 60 mmHg. Tricuspid valve appears mildly thickened. There is moderate tricuspid regurgitation. Pulmonic Valve: Pulmonic valve not well visualized. Pericardium: Normal pericardium with no significant pericardial effusion. Aorta: Normal aortic root. IVC: Dilated IVC without respiratory collapse consistent with elevated right atrial pressure. Conclusions: Moderate concentric left ventricular hypertrophy. Severely reduced left ventricular systolic function with global hypokinesis. Dilated right ventricle with severely reduced systolic function. Mild left atrial enlargement. Severe right atrial enlargement. Moderate mitral regurgitation. Heavily calcified aortic valve with at least moderate aortic stenosis with trace regurgitation. Moderate tricuspid regurgitation and severe pulmonary hypertension. Dilated IVC which does not collapse suggests elevated right atrial pressures. Electronically Signed By: Isabel Mckeon 2019-03-30 14:06:57 PDT
--- NOTE | 2019-03-30 14:14 | PN ---
Date/Time of Note Date/Time of Note DATE: 03/30/19 TIME: 14:08 Assessment/Plan VTE Prophylaxis Risk score (from Ns)>0 risk: 7 SCD applied (from [facility] [place]): No SCD contraindicated: other Pharmacological prophylaxis: LMWH Lines/Catheters IV Catheter Type (from [facility]): Saline Lock Urinary Cath still in place: No Assessment/Plan Hospital Course S: Patient seen by cardiology team, along with speech therapy team and wound care team this morning. Presently n.p.o. O: VS- see below PE: Gen: Frail appearing elderly man, lying in bed Eyes: Miotic pupils minimally reactive. HEENT: Dry mucous membranes, white plaques on buccae, tongue erythema Neck: No lymphadenopathy, no JVD Card: Regular rate and rhythm, no murmurs Pulm: Clear to auscultation bilaterally Abd: Soft, nontender, nondistended. Ext: No cyanosis/clubbing or edema. Not cooperative with shoulder exam; actively resists ROM bilaterally. There is no tenderness. Skin: Melanosis of the skin, especially face. He also has deep abrasions bilaterally anterior tibiae. Neuro: Speech is still somewhat slurred and incomprehensible to me Assessment/Plan: 83 yo man Parkinsons and dementia presents from SNF with elevated troponins. #Elevated troponin: Per cardiology team this is likely a type 2 [place] vs small thrombotic NSTEMI. EKG with RBBB and inferior Q waves - Difficult to tell if patient is symptomatic, cannot understand speech - continue to trend. - ASA 325 x1, 81mg daily. - Lovenox 1mg/kg q12h - Statin allergy reported; will hold off until more information. - Consulted Dr. Mckeon, follow-up their recommendations - Of note patient is full code. #Shoulder pain- In paper chart is a normal XR from 03/26/19- However now L shoulder XR shows high-riding humerus; possible rotator cuff injury- However no fracture. -Monitor, PT eval, pain control medications as needed #HTN -presently stable - Cont home meds #BPH -Cont home meds #A fib- Not currently on anticoagulation, possibly due to frequent falls- Rate controlled. -Monitor, also on Lovenox 1 mg/kg subcu twice daily. #dementia - Cont donepezil DVT: lovenox GI: PPI BID Result Diagram: 03/30/19 0245 03/30/19 0245 Results 24hrs Laboratory Tests Test 03/29/19 16:51 03/29/19 21:04 03/30/19 02:45 03/30/19 10:46 White Blood Count 6.8 5.2 # Red Blood Count 5.49 5.61 Hemoglobin 14.0 14.0 Hematocrit 41.6 L 43.2 Mean Corpuscular 75.8 L 77.0 L Volume Mean Corpuscular 25.5 L 25.0 L Hemoglobin Mean Corpuscular 33.7 32.4 Hemoglobin Concent Red Cell 19.8 H 19.9 H Distribution Width Platelet Count 127 L 117 L Mean Platelet Volume 10.0 10.8 H Immature 0.700 H 1.400 H Granulocytes % Neutrophils % 82.0 H Lymphocytes % 5.6 L Monocytes % 10.6 Eosinophils % 0.1 Basophils % 1.0 Nucleated Red Blood 1.0 H 1 H Cells % Immature 0.050 H 0.070 H Granulocytes # Neutrophils # 5.5 Lymphocytes # 0.4 L Monocytes # 0.7 Eosinophils # 0.0 Basophils # 0.1 Nucleated Red Blood 0.1 H Cells # Sodium Level 136 143 Potassium Level 3.5 4.6 Chloride Level 99 104 Carbon Dioxide Level 27 25 Anion Gap 10 14 H Blood Urea Nitrogen 64 H 61 H Creatinine 1.50 H 1.42 H Est Glomerular Filtrat Rate mL/min Glucose Level 176 90 # Calcium Level 8.3 L 8.5 Total Bilirubin 0.6 0.8 Direct Bilirubin 0.00 0.00 Indirect Bilirubin 0.6 0.8 Aspartate Amino 43 55 H Transf (AST/SGOT) Alanine 38 36 Aminotransferase (AL T/SGPT) Alkaline Phosphatase 136 H 143 H Troponin I 0.176 *H 0.199 *H 0.197 *H 0.198 *H Total Protein 6.0 L 6.6 Albumin 2.7 L 3.2 L Globulin 3.30 H 3.40 H Albumin/Globulin 0.81 0.94 Ratio Lipase 15 L Segmented 46 Neutrophils % (Manual) Band Neutrophils % 30 H (Manual) Lymphocytes % 12 L (Manual) Monocytes % (Manual) 11 Eosinophils % 1 (Manual) Neutrophils # 2.5 (Manual) Band Neutrophils # 1.5 H Lymphocytes (Manual) 0.6 L Monocytes # (Manual) 0.5 Platelet Estimate DECREASED Giant Platelets 6 H Polychromasia 3+ Poikilocytosis 3+ Anisocytosis 2+ Macrocytosis 1+ Hemoglobin A1c 8.1 H Phosphorus Level 5.1 H Magnesium Level 1.8 Creatinine Kinase MB 8.43 H 6.51 H (Mass) Triglycerides Level 50 50 Cholesterol Level < 50 L < 50 L LDL Cholesterol, Calculated HDL Cholesterol 14 L 11 L Cholesterol/HDL Ratio Thyroid Stimulating 2.720 Hormone (TSH) Creatine Kinase 50 Creatine Kinase 13.0 Index Exam/Review of Systems Exam Vitals Vital Signs Date Temp Pulse Resp B/P (MAP) Pulse Ox O2 O2 Flow FiO2 Time Delivery Rate 03/30/19 98.3 81 17 109/74 96 11:57 (86) 03/30/19 Nasal 2.0 08:51 Cannula Results Results 24hrs Laboratory Tests Test 03/29/19 16:51 03/29/19 21:04 03/30/19 02:45 03/30/19 10:46 White Blood Count 6.8 5.2 # Red Blood Count 5.49 5.61 Hemoglobin 14.0 14.0 Hematocrit 41.6 L 43.2 Mean Corpuscular 75.8 L 77.0 L Volume Mean Corpuscular 25.5 L 25.0 L Hemoglobin Mean Corpuscular 33.7 32.4 Hemoglobin Concent Red Cell 19.8 H 19.9 H Distribution Width Platelet Count 127 L 117 L Mean Platelet Volume 10.0 10.8 H Immature 0.700 H 1.400 H Granulocytes % Neutrophils % 82.0 H Lymphocytes % 5.6 L Monocytes % 10.6 Eosinophils % 0.1 Basophils % 1.0 Nucleated Red Blood 1.0 H 1 H Cells % Immature 0.050 H 0.070 H Granulocytes # Neutrophils # 5.5 Lymphocytes # 0.4 L Monocytes # 0.7 Eosinophils # 0.0 Basophils # 0.1 Nucleated Red Blood 0.1 H Cells # Sodium Level 136 143 Potassium Level 3.5 4.6 Chloride Level 99 104 Carbon Dioxide Level 27 25 Anion Gap 10 14 H Blood Urea Nitrogen 64 H 61 H Creatinine 1.50 H 1.42 H Est Glomerular Filtrat Rate mL/min Glucose Level 176 90 # Calcium Level 8.3 L 8.5 Total Bilirubin 0.6 0.8 Direct Bilirubin 0.00 0.00 Indirect Bilirubin 0.6 0.8 Aspartate Amino 43 55 H Transf (AST/SGOT) Alanine 38 36 Aminotransferase (AL T/SGPT) Alkaline Phosphatase 136 H 143 H Troponin I 0.176 *H 0.199 *H 0.197 *H 0.198 *H Total Protein 6.0 L 6.6 Albumin 2.7 L 3.2 L Globulin 3.30 H 3.40 H Albumin/Globulin 0.81 0.94 Ratio Lipase 15 L Segmented 46 Neutrophils % (Manual) Band Neutrophils % 30 H (Manual) Lymphocytes % 12 L (Manual) Monocytes % (Manual) 11 Eosinophils % 1 (Manual) Neutrophils # 2.5 (Manual) Band Neutrophils # 1.5 H Lymphocytes (Manual) 0.6 L Monocytes # (Manual) 0.5 Platelet Estimate DECREASED Giant Platelets 6 H Polychromasia 3+ Poikilocytosis 3+ Anisocytosis 2+ Macrocytosis 1+ Hemoglobin A1c 8.1 H Phosphorus Level 5.1 H Magnesium Level 1.8 Creatinine Kinase MB 8.43 H 6.51 H (Mass) Triglycerides Level 50 50 Cholesterol Level < 50 L < 50 L LDL Cholesterol, Calculated HDL Cholesterol 14 L 11 L Cholesterol/HDL Ratio Thyroid Stimulating 2.720 Hormone (TSH) Creatine Kinase 50 Creatine Kinase 13.0 Index Medications Medication Current Medications Sodium Chloride 1,000 ml @ 50 mls/hr Q20H IV Last administered on 03/30/19at 00:52; Admin Dose 50 MLS/HR; Start 03/29/19 at 19:12 IV Flush (NS 3 ml) 3 ml PER PROTOCOL IV ; Start 03/29/19 at 19:30 Ondansetron HCl (Zofran Inj) 4 mg Q6H PRN IV NAUSEA/VOMITING; Start 03/29/19 at 19:30 Acetaminophen (Tylenol Tab) 650 mg Q6H PRN PO .PAIN 1-3 OR TEMP; Start 03/29/19 at 19:30; Status Hold Amantadine HCl (Symmetrel) 100 mg Q12H PO ; Start 03/29/19 at 19:30; Status Hold Ascorbic Acid (Vitamin C) 500 mg DAILY PO ; Start 03/30/19 at 09:00; Status Hold Bisacodyl (Dulcolax Supp) 10 mg DAILY PRN [place] constipation; Start 03/29/19 at 19:30 Cholecalciferol (Vitamin D) 2,000 unit DAILY PO ; Start 03/30/19 at 09:00; Status Hold Cyanocobalamin (Vitamin B12) 1,000 mcg DAILY PO ; Start 03/30/19 at 09:00; Status Hold Digoxin (Digoxin) 0.125 mg DAILY@1300 PO ; Start 03/30/19 at 13:00; Status Hold Docusate Sodium (Colace) 100 mg BID PO ; Start 03/29/19 at 21:00 Donepezil HCl (Aricept) 10 mg QHS PO ; Start 03/29/19 at 21:00 Finasteride (Proscar) 5 mg QHS PO ; Start 03/29/19 at 21:00 Lisinopril (Zestril) 2.5 mg DAILY PO ; Start 03/30/19 at 09:00; Status Hold Metolazone (Zaroxolyn) 2.5 mg DAILY PO ; Start 03/30/19 at 09:00; Status Hold Metoprolol Tartrate (Lopressor) 25 mg Q12H PO ; Start 03/29/19 at 19:30; Status Hold Tamsulosin HCl (Flomax) 0.4 mg HS PO ; Start 03/29/19 at 21:00 Thiamine HCl (Vitamin B1) 100 mg DAILY PO ; Start 03/30/19 at 09:00 Tramadol HCl (Ultram) 50 mg BID PRN PO PAIN; Start 03/29/19 at 19:30 Melatonin (Melatonin) 6 mg HS PO ; Start 03/29/19 at 21:00 Enoxaparin Sodium (Lovenox) 65 mg Q12 SC Last administered on 03/30/19at 08:47; Admin Dose 65 MG; Start 03/29/19 at 21:00 Aspirin (Aspirin) 81 mg DAILY PO ; Start 03/30/19 at 09:00; Status Hold Pantoprazole (Protonix Tab) 40 mg BID PO ; Start 03/30/19 at 06:00; Status Hold Hydralazine HCl (Apresoline) 10 mg Q4H PRN IV ELEVATED BLOOD PRESSURE; Start 03/29/19 at 22:00 Diclofenac Sodium (Voltaren 1% Gel) 2 gm QID TP Last administered on 03/30/19at 13:14; Admin Dose 2 GM; Start 03/30/19 at 00:00 Aspirin (Aspirin) 81 mg DAILY NV Last administered on 03/30/19at 08:32; Admin Dose 81 MG; Start 03/30/19 at 09:00 Metoprolol Tartrate (Lopressor) 2.5 mg Q6 IV Last administered on 03/30/19at 06:33; Admin Dose 2.5 MG; Start 03/30/19 at 06:00 Digoxin (Digoxin) 125 mcg DAILY@13 IV Last administered on 03/30/19at 13:09; Admin Dose 125 MCG; Start 03/30/19 at 13:00 JHON ROD Mar 30, 2019 14:14
[2019-03-30] MEDS: FINASTERIDE 5 MG TAB PO SCH (21:00)
[2019-03-30] MEDS: DONEPEZIL 10 MG TAB PO SCH (21:00)
[2019-03-30] MEDS: TAMSULOSIN (SR) 0.4 MG CAP PO SCH (21:00)
[2019-03-30] MEDS: MELATONIN 3 MG TABLET PO SCH (21:00)
[2019-03-31] VITALS (11 sets, daily range): BP systolic 87–128; BP diastolic 50–75; PULSE 60–101; RESP 16–19
[2019-03-31] MEDS: SOD CHLORIDE 0.9% 1,000 ML IV SCH ×2 (05:15→23:55)
[2019-03-31] MEDS: METOPROLOL 5 MG INJ IV SCH ×4 (06:00→18:00)
[2019-03-31] MEDS: THIAMINE 100 MG TAB PO SCH (09:00)
[2019-03-31] MEDS: DOCUSATE SODIUM 100 MG CAP PO SCH ×2 (09:00→21:00)
[2019-03-31] MEDS: DICLOFENAC SODIUM 1% GEL 100 GM TUBE TP SCH ×4 (09:00→21:08)
[2019-03-31] MEDS: ASPIRIN 300 MG SUPP PR SCH (10:03)
[2019-03-31] MEDS: ENOXAPARIN 80 MG/0.8 ML SYG SC SCH ×2 (10:11→21:13)
[2019-03-31] MEDS ORDERED: PENDING SANTYL ORDER FOR WOUND CARE XX PRN (13:00)
[2019-03-31] MEDS: DIGOXIN 500 MCG INJ IV SCH (13:15)
--- NOTE | 2019-03-31 16:13 | CONS ---
Assessment/Plan Assessment/Plan Hospital Course (Demo Recall) 83 yo presenting with left shoulder pain and mild gradual rise of troponin. Determination of cause of troponin elevation is difficult as patient cannot provide history, but given the flat pattern of elevation would point to either a type 2 demand-mediated elevation or a small NSTEMI. Impression: Elevated troponin - type 2 NV vs small thrombotic NSTEMI Atrial fibrillation, rate controlled Cardiomyopathy - per , pt has h/o CHF and weak heart muscle Dysphagia and unsafe to take pills Recommendations: Discussed with patient's - given his advanced dementia, and stable cardiac status at present, would lean toward conservative therapy. Continue beta blockade IV for now as he is NPO, will liberalize the hold parameters such that it is given. If able to take po meds at some point, would initiate statin therapy and clarify statin "allergy" Would also add kalli/arb once able to take po Consultation Date/Type/Reason Admit Date/Time Mar 29, 2019 at 18:22 Initial Consult Date 03/30/19 Type of Consult Cardiology Requesting Provider: KAYLIN JAMES MD Date/Time of Note DATE: 03/31/19 TIME: 16:09 24 HR Interval Summary Free Text/Dictation Patient's at bedside, she has observed him to be somnolent throughout the day. Patient will wake up, but speech is not coherent and he goes back to bed. Subjective hx not possible: pt non-verbal Exam/Review of Systems Vital Signs Vitals Vital Signs Date Temp Pulse Resp B/P (MAP) Pulse Ox O2 O2 Flow FiO2 Time Delivery Rate 03/31/19 97.7 97 19 98/50 (66 90 15:22 03/31/19 Nasal 2.0 07:54 Cannula Intake and Output 03/30/19 03/30/19 03/31/19 1515:00 23:00 07:00 IntakeIntake Total 200 ml OutputOutput Total 300 ml 900 ml BalanceBalance -100 ml -900 ml Exam Constitutional: frail Head: normocephalic, atraumatic Eyes: nl lids ENMT: nl external ears & nose Neck: No jvd, No bruits Respiratory: clear to auscultation, normal air movement Cardiovascular: irregular rhythm; No murmurs/extra sounds Gastrointestinal: soft, non-tender Musculoskeletal: nl extremities to inspection Extremities: No edema Neurological: lethargic Skin: nl turgor Labs Result Diagram: 03/31/19 0612 03/31/19 0612 Results 24hrs Laboratory Tests Test 03/30/19 22:24 03/31/19 06:12 03/31/19 08:57 Troponin I 0.266 *H 0.339 *H White Blood Count 6.6 # Red Blood Count 5.80 Hemoglobin 14.7 Hematocrit 43.4 Mean Corpuscular Volume 74.8 L Mean Corpuscular Hemoglobin 25.3 L Mean Corpuscular Hemoglobin Concent 33.9 Red Cell Distribution Width 20.4 H Platelet Count 134 L Mean Platelet Volume Immature Granulocytes % 1.400 H Neutrophils % Segmented Neutrophils % (Manual) 32 L Band Neutrophils % (Manual) 55 H Lymphocytes % Lymphocytes % (Manual) 10 L Reactive Lymphocytes % (Manual) 1 H Monocytes % Monocytes % (Manual) 2 Eosinophils % Basophils % Nucleated Red Blood Cells % 1.1 H Immature Granulocytes # 0.090 H Neutrophils # Neutrophils # (Manual) 2.3 Band Neutrophils # 3.6 H Lymphocytes (Manual) 0.6 L Lymphocytes # Reactive Lymphocytes # 0.0 Monocytes # Monocytes # (Manual) 0.1 L Eosinophils # Basophils # Nucleated Red Blood Cells # Platelet Estimate DECREASED Giant Platelets 1 H Polychromasia 3+ Poikilocytosis 3+ Anisocytosis 2+ Macrocytosis 1+ Spherocytes 1+ Target Cells 1+ Sodium Level 140 Potassium Level 3.9 Chloride Level 110 Carbon Dioxide Level 19 L Anion Gap 11 Blood Urea Nitrogen 58 H Creatinine 1.18 Est Glomerular Filtrat Rate mL/min Glucose Level 40 #*L Calcium Level 8.7 Phosphorus Level 4.6 Magnesium Level 1.7 Bedside Glucose 51 L Medications Medications Current Medications Sodium Chloride 1,000 ml @ 50 mls/hr Q20H IV Last administered on 03/30/19at 00:52; Admin Dose 50 MLS/HR; Start 03/29/19 at 19:12 IV Flush (NS 3 ml) 3 ml PER PROTOCOL IV ; Start 03/29/19 at 19:30 Ondansetron HCl (Zofran Inj) 4 mg Q6H PRN IV NAUSEA/VOMITING; Start 03/29/19 at 19:30 Acetaminophen (Tylenol Tab) 650 mg Q6H PRN PO .PAIN 1-3 OR TEMP; Start 03/29/19 at 19:30; Status Hold Amantadine HCl (Symmetrel) 100 mg Q12H PO ; Start 03/29/19 at 19:30; Status Hold Ascorbic Acid (Vitamin C) 500 mg DAILY PO ; Start 03/30/19 at 09:00; Status Hold Bisacodyl (Dulcolax Supp) 10 mg DAILY PRN [place] constipation; Start 03/29/19 at 19:30 Cholecalciferol (Vitamin D) 2,000 unit DAILY PO ; Start 03/30/19 at 09:00; Status Hold Cyanocobalamin (Vitamin B12) 1,000 mcg DAILY PO ; Start 03/30/19 at 09:00; Status Hold Docusate Sodium (Colace) 100 mg BID PO ; Start 03/29/19 at 21:00 Donepezil HCl (Aricept) 10 mg QHS PO ; Start 03/29/19 at 21:00 Finasteride (Proscar) 5 mg QHS PO ; Start 03/29/19 at 21:00 Tamsulosin HCl (Flomax) 0.4 mg HS PO ; Start 03/29/19 at 21:00 Thiamine HCl (Vitamin B1) 100 mg DAILY PO ; Start 03/30/19 at 09:00 Tramadol HCl (Ultram) 50 mg BID PRN PO PAIN; Start 03/29/19 at 19:30 Melatonin (Melatonin) 6 mg HS PO ; Start 03/29/19 at 21:00 Enoxaparin Sodium (Lovenox) 65 mg Q12 SC Last administered on 03/31/19at 10:11; Admin Dose 65 MG; Start 03/29/19 at 21:00 Aspirin (Aspirin) 81 mg DAILY PO ; Start 03/30/19 at 09:00; Status Hold Pantoprazole (Protonix Tab) 40 mg BID PO ; Start 03/30/19 at 06:00; Status Hold Hydralazine HCl (Apresoline) 10 mg Q4H PRN IV ELEVATED BLOOD PRESSURE; Start 03/29/19 at 22:00 Diclofenac Sodium (Voltaren 1% Gel) 2 gm QID TP Last administered on 03/31/19at 13:06; Admin Dose 2 GM; Start 03/30/19 at 00:00 Aspirin (Aspirin) 81 mg DAILY [place] Last administered on 03/31/19at 10:03; Admin Dose 81 MG; Start 03/30/19 at 09:00 Metoprolol Tartrate (Lopressor) 2.5 mg Q6 IV Last administered on 03/30/19at 06:33; Admin Dose 2.5 MG; Start 03/30/19 at 06:00 Miscellaneous Information (Pending Santyl Order For Wound Care) This patient sawyer... PRN PRN XX WOUND CARE; Start 03/31/19 at 13:00 Collagenase (Santyl) 1 applic DAILY TOP ; Start 03/31/19 at 13:00 NIA JIMENEZ Mar 31, 2019 16:13
[2019-03-31] MEDS: COLLAGENASE 5 GM (UD JAR) TOP SCH (16:24)
[2019-03-31] MEDS: FINASTERIDE 5 MG TAB PO SCH (21:00)
[2019-03-31] MEDS: TAMSULOSIN (SR) 0.4 MG CAP PO SCH (21:00)
[2019-03-31] MEDS: DONEPEZIL 10 MG TAB PO SCH (21:00)
[2019-03-31] MEDS: MELATONIN 3 MG TABLET PO SCH (21:00)
[2019-04-01] VITALS (13 sets, daily range): BP systolic 98–120; BP diastolic 52–68; PULSE 64–108; RESP 18–20
[2019-04-01] MEDS: METOPROLOL 5 MG INJ IV SCH ×4 (00:35→19:11)
--- NOTE | 2019-04-01 08:49 | CONS ---
Assessment/Plan Assessment/Plan Hospital Course (Demo Recall) 83 yo presenting with left shoulder pain and mild gradual rise of troponin. This could be a small NSTEMI versus demand mediated troponin release. Impression: Elevated troponin - type 2 IN vs small thrombotic NSTEMI Atrial fibrillation, rate controlled Cardiomyopathy - per , pt has h/o CHF and weak heart muscle Dysphagia and unsafe to take pills Recommendations: Given his advanced dementia, and stable cardiac status at present, would lean toward conservative therapy. Continue beta blockade IV for now as he is NPO, for heart rate control and for cardiomyopathy. If able to take po meds at some point, would initiate statin therapy and clarify statin "allergy" Would also add kalli/arb once able to take po Consultation Date/Type/Reason Admit Date/Time Mar 29, 2019 at 18:22 Initial Consult Date 03/30/19 Type of Consult Cardiology Requesting Provider: KAYLIN JAMES MD Date/Time of Note DATE: 04/01/19 TIME: 08:46 24 HR Interval Summary Free Text/Dictation No events overnight, patient nonverbal Subjective hx not possible: pt non-verbal Exam/Review of Systems Vital Signs Vitals Vital Signs Date Temp Pulse Resp B/P (MAP) Pulse Ox O2 O2 Flow FiO2 Time Delivery Rate 04/01/19 Nasal 2.0 08:01 Cannula 04/01/19 98.3 70 18 105/52 93 07:25 (69) Intake and Output 03/31/19 03/31/19 04/01/19 1515:00 23:00 07:00 OutputOutput Total 500 ml BalanceBalance -500 ml Exam Constitutional: non-verbal Psych: nl mood/affect Head: normocephalic, atraumatic ENMT: nl external ears & nose; No nl lips & teeth (missing front tooth) Neck: No jvd, No bruits Respiratory: clear to auscultation (anteriorly) Cardiovascular: irregular rhythm Gastrointestinal: soft, non-tender Extremities: No edema Neurological: lethargic Skin: other (multiple ulcerations to legs) Labs Result Diagram: 03/31/1961103/31/19611 Results 24hrs Laboratory Tests Test 03/31/19 08:57 Bedside Glucose 51 L Medications Medications Current Medications Sodium Chloride 1,000 ml @ 50 mls/hr Q20H IV Last administered on 03/31/19at 23:55; Admin Dose 50 MLS/HR; Start 03/29/19 at 19:12 IV Flush (NS 3 ml) 3 ml PER PROTOCOL IV ; Start 03/29/19 at 19:30 Ondansetron HCl (Zofran Inj) 4 mg Q6H PRN IV NAUSEA/VOMITING; Start 03/29/19 at 19:30 Acetaminophen (Tylenol Tab) 650 mg Q6H PRN PO .PAIN 1-3 OR TEMP; Start 03/29/19 at 19:30; Status Hold Amantadine HCl (Symmetrel) 100 mg Q12H PO ; Start 03/29/19 at 19:30; Status Hold Ascorbic Acid (Vitamin C) 500 mg DAILY PO ; Start 03/30/19 at 09:00; Status Hold Bisacodyl (Dulcolax Supp) 10 mg DAILY PRN MD constipation; Start 03/29/19 at 19:30 Cholecalciferol (Vitamin D) 2,000 unit DAILY PO ; Start 03/30/19 at 09:00; Status Hold Cyanocobalamin (Vitamin B12) 1,000 mcg DAILY PO ; Start 03/30/19 at 09:00; Status Hold Docusate Sodium (Colace) 100 mg BID PO ; Start 03/29/19 at 21:00 Donepezil HCl (Aricept) 10 mg QHS PO ; Start 03/29/19 at 21:00 Finasteride (Proscar) 5 mg QHS PO ; Start 03/29/19 at 21:00 Tamsulosin HCl (Flomax) 0.4 mg HS PO ; Start 03/29/19 at 21:00 Thiamine HCl (Vitamin B1) 100 mg DAILY PO ; Start 03/30/19 at 09:00 Tramadol HCl (Ultram) 50 mg BID PRN PO PAIN; Start 03/29/19 at 19:30 Melatonin (Melatonin) 6 mg HS PO ; Start 03/29/19 at 21:00 Enoxaparin Sodium (Lovenox) 65 mg Q12 SC Last administered on 03/31/19at 21:13; Admin Dose 65 MG; Start 03/29/19 at 21:00 Aspirin (Aspirin) 81 mg DAILY PO ; Start 03/30/19 at 09:00; Status Hold Pantoprazole (Protonix Tab) 40 mg BID PO ; Start 03/30/19 at 06:00; Status Hold Hydralazine HCl (Apresoline) 10 mg Q4H PRN IV ELEVATED BLOOD PRESSURE; Start 03/29/19 at 22:00 Diclofenac Sodium (Voltaren 1% Gel) 2 gm QID TP Last administered on 03/31/19at 21:08; Admin Dose 2 GM; Start 03/30/19 at 00:00 Aspirin (Aspirin) 81 mg DAILY MD Last administered on 03/31/19at 10:03; Admin Dose 81 MG; Start 03/30/19 at 09:00 Metoprolol Tartrate (Lopressor) 2.5 mg Q6 IV Last administered on 04/01/19at 06:11; Admin Dose 2.5 MG; Start 03/30/19 at 06:00 Miscellaneous Information (Pending Santyl Order For Wound Care) This patient sawyer... PRN PRN XX WOUND CARE; Start 03/31/19 at 13:00 Collagenase (Santyl) 1 applic DAILY TOP Last administered on 03/31/19at 16:24; Admin Dose 1 APPLIC; Start 03/31/19 at 13:00 NIA JIMENEZ Apr 01, 2019 08:49
[2019-04-01] MEDS: DOCUSATE SODIUM 100 MG CAP PO SCH ×2 (09:00→20:24)
[2019-04-01] MEDS: THIAMINE 100 MG TAB PO SCH (09:00)
[2019-04-01] MEDS: ASPIRIN 300 MG SUPP PR SCH (09:00)
[2019-04-01] MEDS: DICLOFENAC SODIUM 1% GEL 100 GM TUBE TP SCH ×4 (11:00→20:17)
[2019-04-01] MEDS: COLLAGENASE 5 GM (UD JAR) TOP SCH (11:00)
[2019-04-01] MEDS: ENOXAPARIN 80 MG/0.8 ML SYG SC SCH ×2 (11:04→20:23)
[2019-04-01] MEDS ORDERED: morphine 2 MG INJ IV STA (13:36)
--- NOTE | 2019-04-01 14:19 | PN ---
Date/Time of Note Date/Time of Note DATE: for events of 03/31/2019 Assessment/Plan VTE Prophylaxis Risk score (from Ns)>0 risk: 8 SCD applied (from Ns): No SCD contraindicated: other Pharmacological prophylaxis: LMWH Lines/Catheters IV Catheter Type (from [facility]): Peripheral IV Urinary Cath still in place: Yes Reason Cath still needed: urinary retention Assessment/Plan Hospital Course S: Patient had no acute events overnight, still on Lovenox O: VS- see below PE: Gen: Frail appearing elderly man, lying in bed Eyes: Miotic pupils minimally reactive. HEENT: Dry mucous membranes, white plaques on buccae, tongue erythema Neck: No lymphadenopathy, no JVD Card: Regular rate and rhythm, no murmurs Pulm: Clear to auscultation bilaterally Abd: Soft, nontender, nondistended. Ext: No cyanosis/clubbing or edema. Not cooperative with shoulder exam; actively resists ROM bilaterally. There is no tenderness. Skin: Melanosis of the skin, especially face. He also has deep abrasions bilaterally anterior tibiae. Neuro: Speech is still somewhat slurred and incomprehensible to me 2D ECHO: Conclusions: Moderate concentric left ventricular hypertrophy. Severely reduced left ventricular systolic function with global hypokinesis. Dilated right ventricle with severely reduced systolic function. Mild left atrial enlargement. Severe right atrial enlargement. Moderate mitral regurgitation. Heavily calcified aortic valve with at least moderate aortic stenosis with trace regurgitation. Moderate tricuspid regurgitation and severe pulmonary hypertension. Dilated IVC which does not collapse suggests elevated right atrial pressures. Assessment/Plan: 83 yo man Parkinsons and dementia presents from SNF with elevated troponins. #Elevated troponin: Per cardiology team this is likely a type 2 [place] vs small thrombotic NSTEMI. EKG with RBBB and inferior Q waves - Difficult to tell if patient is symptomatic, cannot understand speech - continue to trend troponin, and continue aspirin 81mg daily. - Lovenox 1mg/kg q12h - Statin allergy reported; will hold off until more information. - Consulted Dr. Mckeon, follow-up their recommendations -conservative management for now #Shoulder pain- In paper chart is a normal XR from 03/26/19- However now L shoulder XR shows high-riding humerus; possible rotator cuff injury- However no fracture. -Monitor, PT eval, pain control medications as needed #HTN -presently stable - Cont home meds #BPH -Cont home meds #A fib- Not currently on anticoagulation, possibly due to frequent falls- Rate controlled. -Monitor, also on Lovenox 1 mg/kg subcu twice daily. #dementia - Cont donepezil DVT: lovenox GI: PPI BID Result Diagram: 03/31/1961103/31/19 06 Exam/Review of Systems Exam Vitals Vital Signs Date Temp Pulse Resp B/P (MAP) Pulse Ox O2 O2 Flow FiO2 Time Delivery Rate 04/01/19 98.6 103 18 114/59 100 11:45 (77) 04/01/19 Nasal 2.0 08:01 Cannula Intake and Output 03/31/19 03/31/19 04/01/19 1515:00 23:00 07:00 OutputOutput Total 500 ml BalanceBalance -500 ml Medications Medication Current Medications Sodium Chloride 1,000 ml @ 50 mls/hr Q20H IV Last administered on 03/31/19at 23:55; Admin Dose 50 MLS/HR; Start 03/29/19 at 19:12 IV Flush (NS 3 ml) 3 ml PER PROTOCOL IV ; Start 03/29/19 at 19:30 Ondansetron HCl (Zofran Inj) 4 mg Q6H PRN IV NAUSEA/VOMITING; Start 03/29/19 at 19:30 Acetaminophen (Tylenol Tab) 650 mg Q6H PRN PO .PAIN 1-3 OR TEMP; Start 03/29/19 at 19:30; Status Hold Amantadine HCl (Symmetrel) 100 mg Q12H PO ; Start 03/29/19 at 19:30; Status Hold Ascorbic Acid (Vitamin C) 500 mg DAILY PO ; Start 03/30/19 at 09:00; Status Hold Bisacodyl (Dulcolax Supp) 10 mg DAILY PRN [place] constipation; Start 03/29/19 at 19:30 Cholecalciferol (Vitamin D) 2,000 unit DAILY PO ; Start 03/30/19 at 09:00; Status Hold Cyanocobalamin (Vitamin B12) 1,000 mcg DAILY PO ; Start 03/30/19 at 09:00; Status Hold Docusate Sodium (Colace) 100 mg BID PO ; Start 03/29/19 at 21:00 Donepezil HCl (Aricept) 10 mg QHS PO ; Start 03/29/19 at 21:00 Finasteride (Proscar) 5 mg QHS PO ; Start 03/29/19 at 21:00 Tamsulosin HCl (Flomax) 0.4 mg HS PO ; Start 03/29/19 at 21:00 Thiamine HCl (Vitamin B1) 100 mg DAILY PO ; Start 03/30/19 at 09:00 Tramadol HCl (Ultram) 50 mg BID PRN PO PAIN; Start 03/29/19 at 19:30 Melatonin (Melatonin) 6 mg HS PO ; Start 03/29/19 at 21:00 Enoxaparin Sodium (Lovenox) 65 mg Q12 SC Last administered on 04/01/19at 11:04; Admin Dose 65 MG; Start 03/29/19 at 21:00 Aspirin (Aspirin) 81 mg DAILY PO ; Start 03/30/19 at 09:00; Status Hold Pantoprazole (Protonix Tab) 40 mg BID PO ; Start 03/30/19 at 06:00; Status Hold Hydralazine HCl (Apresoline) 10 mg Q4H PRN IV ELEVATED BLOOD PRESSURE; Start 03/29/19 at 22:00 Diclofenac Sodium (Voltaren 1% Gel) 2 gm QID TP Last administered on 04/01/19at 12:08; Admin Dose 2 GM; Start 03/30/19 at 00:00 Aspirin (Aspirin) 81 mg DAILY [place] Last administered on 03/31/19at 10:03; Admin Dose 81 MG; Start 03/30/19 at 09:00 Metoprolol Tartrate (Lopressor) 2.5 mg Q6 IV Last administered on 04/01/19at 12 :08; Admin Dose 2.5 MG; Start 03/30/19 at 06:00 Miscellaneous Information (Pending Santyl Order For Wound Care) This patient sawyer... PRN PRN XX WOUND CARE; Start 03/31/19 at 13:00 Collagenase (Santyl) 1 applic DAILY TOP Last administered on 04/01/19at 11:00; Admin Dose 1 APPLIC; Start 03/31/19 at 13:00 JHON ROD Apr 01, 2019 14:19
[2019-04-01] MEDS ORDERED: morphine 2 MG INJ IV PRN (14:30)
--- NOTE | 2019-04-01 14:43 | PN ---
Date/Time of Note Date/Time of Note DATE: 04/01/19 TIME: 14:19 Assessment/Plan VTE Prophylaxis Risk score (from Ns)>0 risk: 8 SCD applied (from Ns): No SCD contraindicated: other Pharmacological prophylaxis: LMWH Lines/Catheters [facility]): Peripheral IV Urinary Cath still in place: Yes Reason Cath still needed: urinary retention Assessment/Plan Hospital Course S: Patient complaining of left arm pain. freezing room worker spoke with family again today to determine the DPOA. O: VS- see below PE: Gen: Frail appearing elderly man, lying in bed Eyes: Miotic pupils minimally reactive. HEENT: Dry mucous membranes, white plaques on buccae, tongue erythema Neck: No lymphadenopathy, no JVD Card: Regular rate and rhythm, no murmurs Pulm: Clear to auscultation bilaterally Abd: Soft, nontender, nondistended. Ext: No bilateral lower extremity edema. However there is decreased range of motion left upper extremity with some tenderness palpation of the left forearm. Positive swelling noted as well Skin: Melanosis of the skin, especially face. He also has deep abrasions bilaterally anterior tibiae. Neuro: Speech is still somewhat slurred and incomprehensible to me 2D ECHO: Conclusions: Moderate concentric left ventricular hypertrophy. Severely reduced left ventricular systolic function with global hypokinesis. Dilated right ventricle with severely reduced systolic function. Mild left atrial enlargement. Severe right atrial enlargement. Moderate mitral regurgitation. Heavily calcified aortic valve with at least moderate aortic stenosis with trace regurgitation. Moderate tricuspid regurgitation and severe pulmonary hypertension. Dilated IVC which does not collapse suggests elevated right atrial pressures. Assessment/Plan: 83 yo man Parkinsons and dementia presents from SNF with elevated troponins. #Elevated troponin: Per cardiology team this is likely a type 2 [place] vs small thrombotic NSTEMI. EKG with RBBB and inferior Q waves - Difficult to tell if patient is symptomatic, cannot understand speech - continue to trend troponin, and continue aspirin 81mg daily. - Lovenox 1mg/kg q12h - Statin allergy reported; will hold off until more information. - Consulted Dr. Mckeon, follow-up their recommendations -conservative management for now #Shoulder pain- L shoulder XR shows high-riding humerus; possible rotator cuff injury- However no fracture. Patient also complaining of some forearm pain and there is some swelling -We will go ahead and check x-ray of the left forearm -Monitor, PT eval, pain control medications as needed #HTN -presently stable - Cont home meds #BPH -Cont home meds #A fib- Not currently on anticoagulation, possibly due to frequent falls- Rate controlled. -Monitor, also on Lovenox 1 mg/kg subcu twice daily. #dementia - Cont donepezil DVT: lovenox GI: PPI BID Dispo: Spoke to son over the phone Prashanth who is the DURABLE POWER OF [employer] and updated him on patient's condition Result Diagram: 03/31/1961103/31/19611 Exam/Review of Systems Exam Vitals Vital Signs Date Temp Pulse Resp B/P (MAP) Pulse Ox O2 O2 Flow FiO2 Time Delivery Rate 04/01/19 98.6 103 18 114/59 100 11:45 (77) 04/01/19 Nasal 2.0 08:01 Cannula Intake and Output 03/31/19 03/31/19 04/01/19 1515:00 23:00 07:00 OutputOutput Total 500 ml BalanceBalance -500 ml Medications Medication Current Medications Sodium Chloride 1,000 ml @ 50 mls/hr Q20H IV Last administered on 03/31/19at 23:55; Admin Dose 50 MLS/HR; Start 03/29/19 at 19:12 IV Flush (NS 3 ml) 3 ml PER PROTOCOL IV ; Start 03/29/19 at 19:30 Ondansetron HCl (Zofran Inj) 4 mg Q6H PRN IV NAUSEA/VOMITING; Start 03/29/19 at 19:30 Acetaminophen (Tylenol Tab) 650 mg Q6H PRN PO .PAIN 1-3 OR TEMP; Start 03/29/19 at 19:30; Status Hold Amantadine HCl (Symmetrel) 100 mg Q12H PO ; Start 03/29/19 at 19:30; Status Hold Ascorbic Acid (Vitamin C) 500 mg DAILY PO ; Start 03/30/19 at 09:00; Status Hold Bisacodyl (Dulcolax Supp) 10 mg DAILY PRN [place] constipation; Start 03/29/19 at 19:30 Cholecalciferol (Vitamin D) 2,000 unit DAILY PO ; Start 03/30/19 at 09:00; Status Hold Cyanocobalamin (Vitamin B12) 1,000 mcg DAILY PO ; Start 03/30/19 at 09:00; Status Hold Docusate Sodium (Colace) 100 mg BID PO ; Start 03/29/19 at 21:00 Donepezil HCl (Aricept) 10 mg QHS PO ; Start 03/29/19 at 21:00 Finasteride (Proscar) 5 mg QHS PO ; Start 03/29/19 at 21:00 Tamsulosin HCl (Flomax) 0.4 mg HS PO ; Start 03/29/19 at 21:00 Thiamine HCl (Vitamin B1) 100 mg DAILY PO ; Start 03/30/19 at 09:00 Tramadol HCl (Ultram) 50 mg BID PRN PO PAIN; Start 03/29/19 at 19:30 Melatonin (Melatonin) 6 mg HS PO ; Start 03/29/19 at 21:00 Enoxaparin Sodium (Lovenox) 65 mg Q12 SC Last administered on 04/01/19at 11:04; Admin Dose 65 MG; Start 03/29/19 at 21:00 Aspirin (Aspirin) 81 mg DAILY PO ; Start 03/30/19 at 09:00; Status Hold Pantoprazole (Protonix Tab) 40 mg BID PO ; Start 03/30/19 at 06:00; Status Hold Hydralazine HCl (Apresoline) 10 mg Q4H PRN IV ELEVATED BLOOD PRESSURE; Start 03/29/19 at 22:00 Diclofenac Sodium (Voltaren 1% Gel) 2 gm QID TP Last administered on 04/01/19at 12:08; Admin Dose 2 GM; Start 03/30/19 at 00:00 Aspirin (Aspirin) 81 mg DAILY [place] Last administered on 03/31/19at 10:03; Admin Dose 81 MG; Start 03/30/19 at 09:00 Metoprolol Tartrate (Lopressor) 2.5 mg Q6 IV Last administered on 04/01/19at 12:08; Admin Dose 2.5 MG; Start 03/30/19 at 06:00 Miscellaneous Information (Pending Santyl Order For Wound Care) This patient sawyer... PRN PRN XX WOUND CARE; Start 03/31/19 at 13:00 Collagenase (Santyl) 1 applic DAILY TOP Last administered on 04/01/19at 11:00; Admin Dose 1 APPLIC; Start 6/18/19 at 13:00 JHON ROD Apr 01, 2019 14:29
[2019-04-01] MEDS: DEXTROSE 5%-0.45% NACL 1,000 ML IV SCH (15:43)
[2019-04-01] MEDS: DONEPEZIL 10 MG TAB PO SCH (20:23)
[2019-04-01] MEDS: TAMSULOSIN (SR) 0.4 MG CAP PO SCH (20:24)
[2019-04-01] MEDS: FINASTERIDE 5 MG TAB PO SCH (20:24)
[2019-04-01] MEDS: MELATONIN 3 MG TABLET PO SCH (20:24)
[2019-04-02] VITALS (11 sets, daily range): BP systolic 94–159; BP diastolic 57–75; PULSE 56–96; RESP 16–20
[2019-04-02] MEDS: METOPROLOL 5 MG INJ IV SCH ×4 (00:28→18:00)
[2019-04-02] MEDS: THIAMINE 100 MG TAB PO SCH (08:07)
[2019-04-02] MEDS: ASPIRIN 300 MG SUPP PR SCH (08:07)
[2019-04-02] MEDS: COLLAGENASE 5 GM (UD JAR) TOP SCH (08:07)
[2019-04-02] MEDS: DEXTROSE 5%-0.45% NACL 1,000 ML IV SCH ×2 (08:07→23:50)
[2019-04-02] MEDS: DOCUSATE SODIUM 100 MG CAP PO SCH ×2 (08:07→20:25)
[2019-04-02] MEDS: DICLOFENAC SODIUM 1% GEL 100 GM TUBE TP SCH ×4 (08:08→20:31)
[2019-04-02] MEDS: ENOXAPARIN 80 MG/0.8 ML SYG SC SCH ×2 (08:22→20:52)
--- NOTE | 2019-04-02 13:07 | PN ---
Date/Time of Note Date/Time of Note DATE: 04/02/19 TIME: 13:05 Assessment/Plan VTE Prophylaxis Risk score (from Ns)>0 risk: 8 SCD applied (from Ns): No SCD contraindicated: other Pharmacological prophylaxis: LMWH Lines/Catheters IV C[facility] Type (from [facility]): Peripheral IV Urinary Cath still in place: Yes Reason Cath still needed: urinary retention Assessment/Plan Hospital Course S: Patient had x-ray of the left forearm performed yesterday which did not show any new fractures. Son updated yesterday over the phone about patient's current condition. O: VS- see below PE: Gen: Frail appearing elderly man, lying in bed Eyes: Miotic pupils minimally reactive. HEENT: Dry mucous membranes, white plaques on buccae, tongue erythema Neck: No lymphadenopathy, no JVD Card: Regular rate and rhythm, no murmurs Pulm: Clear to auscultation bilaterally Abd: Soft, nontender, nondistended. Ext: No bilateral lower extremity edema. + decreased range of motion left upper extremity with some tenderness palpation of the left forearm. Positive swelling noted as well Skin: Melanosis of the skin, especially face. He also has deep abrasions bilater ally anterior tibiae. Neuro: Speech is still somewhat slurred and incomprehensible to me 2D ECHO: Conclusions: Moderate concentric left ventricular hypertrophy. Severely reduced left ventricular systolic function with global hypokinesis. Dilated right ventricle with severely reduced systolic function. Mild left atrial enlargement. Severe right atrial enlargement. Moderate mitral regurgitation. Heavily calcified aortic valve with at least moderate aortic stenosis with trace regurgitation. Moderate tricuspid regurgitation and severe pulmonary hypertension. Dilated IVC which does not collapse suggests elevated right atrial pressures. Assessment/Plan: 83 yo man Parkinsons and dementia presents from SNF with elevated troponins. #Elevated troponin: Per cardiology team this is likely a type 2 [place] vs small thrombotic NSTEMI. EKG with RBBB and inferior Q waves - Difficult to tell if patient is symptomatic, cannot understand speech - continue to trend troponin, and continue aspirin 81mg daily. - Lovenox 1mg/kg q12h - Statin allergy reported; will hold off until more information. -Per cardiology Dr. Mckeon, follow-up their recommendations -conservative management for now #Shoulder pain- L shoulder XR shows high-riding humerus; possible rotator cuff injury- However no fracture. Patient also complaining of some forearm pain and there is some swelling -We will consider getting orthopedic surgery consult given possible rotator cuff injury -Monitor, PT eval, pain control medications as needed #HTN -presently stable - Cont home meds #BPH -Cont home meds #A fib- Not currently on anticoagulation, possibly due to frequent falls- Rate controlled. -Monitor, also on Lovenox 1 mg/kg subcu twice daily. #dementia - Cont donepezil DVT: lovenox GI: PPI BID Dispo: Spoke to son over the phone Prashanth who is the DURABLE POWER [employer] and updated him on patient's condition yesterday, case management looking for n ew placement options as well Result Diagram: 04/02/19 0532 04/02/19 0532 Results 24hrs Laboratory Tests Test 04/02/19 05:32 White Blood Count 11.8 #H Red Blood Count 5.59 Hemoglobin 13.9 L Hematocrit 41.2 L Mean Corpuscular Volume 73.7 L Mean Corpuscular Hemoglobin 24.9 L Mean Corpuscular Hemoglobin Concent 33.7 Red Cell Distribution Width 20.4 H Platelet Count 123 L Mean Platelet Volume Immature Granulocytes % 2.900 H Neutrophils % Segmented Neutrophils % (Manual) 57 Band Neutrophils % (Manual) 32 H Lymphocytes % Lymphocytes % (Manual) 4 L Monocytes % Monocytes % (Manual) 4 Eosinophils % Eosinophils % (Manual) 3 Basophils % Nucleated Red Blood Cells % 0.3 H Immature Granulocytes # 0.340 H Neutrophils # Neutrophils # (Manual) 7.2 Band Neutrophils # 3.7 H Lymphocytes (Manual) 0.4 L Lymphocytes # Monocytes # Monocytes # (Manual) 0.4 Eosinophils # Basophils # Nucleated Red Blood Cells # Platelet Estimate DECREASED Giant Platelets 26 H Polychromasia 1+ Poikilocytosis 3+ Anisocytosis 2+ Macrocytosis 2+ Sodium Level 147 H Potassium Level 3.2 L Chloride Level 111 H Carbon Dioxide Level 25 Anion Gap 11 Blood Urea Nitrogen 54 H Creatinine 1.22 Est Glomerular Filtrat Rate mL/min Glucose Level 155 # Calcium Level 8.4 Phosphorus Level 4.3 Magnesium Level 2.0 Troponin I 0.469 *H Exam/Review of Systems Exam Vitals Vital Signs Date Temp Pulse Resp B/P (MAP) Pulse Ox O2 O2 Flow FiO2 Time Delivery Rate 04/02/19 98.6 65 18 98/57 (71) 90 11:32 04/02/19 Nasal 2.0 08:10 Cannula Intake and Output 04/01/19 04/01/19 04/02/19 1515:00 23:00 07:00 OutputOutput Total 400 ml 400 ml BalanceBalance -400 ml -400 ml Results Results 24hrs Laboratory Tests Test 04/02/19 05:32 White Blood Count 11.8 #H Red Blood Count 5.59 Hemoglobin 13.9 L Hematocrit 41.2 L Mean Corpuscular Volume 73.7 L Mean Corpuscular Hemoglobin 24.9 L Mean Corpuscular Hemoglobin Concent 33.7 Red Cell Distribution Width 20.4 H Platelet Count 123 L Mean Platelet Volume Immature Granulocytes % 2.900 H Neutrophils % Segmented Neutrophils % (Manual) 57 Band Neutrophils % (Manual) 32 H Lymphocytes % Lymphocytes % (Manual) 4 L Monocytes % Monocytes % (Manual) 4 Eosinophils % Eosinophils % (Manual) 3 Basophils % Nucleated Red Blood Cells % 0.3 H Immature Granulocytes # 0.340 H Neutrophils # Neutrophils # (Manual) 7.2 Band Neutrophils # 3.7 H Lymphocytes (Manual) 0.4 L Lymphocytes # Monocytes # Monocytes # (Manual) 0.4 Eosinophils # Basophils # Nucleated Red Blood Cells # Platelet Estimate DECREASED Giant Platelets 26 H Polychromasia 1+ Poikilocytosis 3+ Anisocytosis 2+ Macrocytosis 2+ Sodium Level 147 H Potassium Level 3.2 L Chloride Level 111 H Carbon Dioxide Level 25 Anion Gap 11 Blood Urea Nitrogen 54 H Creatinine 1.22 Est Glomerular Filtrat Rate mL/min Glucose Level 155 # Calcium Level 8.4 Phosphorus Level 4.3 Magnesium Level 2.0 Troponin I 0.469 *H Medications Medication Current Medications IV Flush (NS 3 ml) 3 ml PER PROTOCOL IV ; Start 03/29/19 at 19:30 Ondansetron HCl (Zofran Inj) 4 mg Q6H PRN IV NAUSEA/VOMITING; Start 03/29/19 at 19:30 Acetaminophen (Tylenol Tab) 650 mg Q6H PRN PO .PAIN 1-3 OR TEMP; Start 03/29/19 at 19:30; Status Hold Amantadine HCl (Symmetrel) 100 mg Q12H PO ; Start 03/29/19 at 19:30; Status Hold Ascorbic Acid (Vitamin C) 500 mg DAILY PO ; Start 03/30/19 at 09:00; Status Hold Bisacodyl (Dulcolax Supp) 10 mg DAILY PRN [place] constipation; Start 03/29/19 at 19:30 Cholecalciferol (Vitamin D) 2,000 unit DAILY PO ; Start 03/30/19 at 09:00; Status Hold Cyanocobalamin (Vitamin B12) 1,000 mcg DAILY PO ; Start 03/30/19 at 09:00; Status Hold Docusate Sodium (Colace) 100 mg BID PO ; Start 03/29/19 at 21:00 Donepezil HCl (Aricept) 10 mg QHS PO ; Start 03/29/19 at 21:00 Finasteride (Proscar) 5 mg QHS PO ; Start 03/29/19 at 21:00 Tamsulosin HCl (Flomax) 0.4 mg HS PO ; Start 03/29/19 at 21:00 Thiamine HCl (Vitamin B1) 100 mg DAILY PO ; Start 03/30/19 at 09:00 Tramadol HCl (Ultram) 50 mg BID PRN PO PAIN; Start 03/29/19 at 19:30 Melatonin (Melatonin) 6 mg HS PO ; Start 03/29/19 at 21:00 Enoxaparin Sodium (Lovenox) 65 mg Q12 SC Last administered on 04/02/19at 08:22; Admin Dose 65 MG; Start 03/29/19 at 21:00 Aspirin (Aspirin) 81 mg DAILY PO ; Start 03/30/19 at 09:00; Status Hold Pantoprazole (Protonix Tab) 40 mg BID PO ; Start 03/30/19 at 06:00; Status Hold Hydralazine HCl (Apresoline) 10 mg Q4H PRN IV ELEVATED BLOOD PRESSURE; Start 03/29/19 at 22:00 Diclofenac Sodium (Voltaren 1% Gel) 2 gm QID TP Last administered on 04/02/19at 12:15; Admin Dose 2 GM; Start 03/30/19 at 00:00 Aspirin (Aspirin) 81 mg DAILY [place] Last administered on 03/31/19at 10:03; Admin Dose 81 MG; Start 03/30/19 at 09:00 Metoprolol Tartrate (Lopressor) 2.5 mg Q6 IV Last administered on 04/02/19at 12:12; Admin Dose 2.5 MG; Start 03/30/19 at 06:00 Miscellaneous Information (Pending Santyl Order For Wound Care) This patient sawyer... PRN PRN XX WOUND CARE; Start 03/31/19 at 13:00 Collagenase (Santyl) 1 applic DAILY TOP Last administered on 04/02/19 08:07; Admin Dose 1 APPLIC; Start 03/31/19 at 13:00 Morphine Sulfate (morphine) 1 mg Q4H PRN IV SEVERE PAIN LEVEL 7-10; Start 04/01/19 at 14:30 Dextrose/Sodium Chloride 1,000 ml @ 60 mls/hr [id number] IV Last administered on 04/02/19 08:07; Admin Dose 60 MLS/HR; Start 04/01/19 at 14:30 Potassium Chloride 100 ml @ 50 mls/hr Q2H IVPB ; Start 04/02/19 at 13:00; Stop 04/02/19 at 16:59 Ciprofloxacin HCl (Ciloxan 0.3% Oph) 1 drop BID BOTH EYES ; Start 04/02/19 at 14:00; Stop 04/05/19 at 13:59 JHON ROD Apr 02, 2019 13:07
[2019-04-02] MEDS: CIPROFLOXACIN 0.3% 2.5 ML OPH BOTH EYES SCH ×2 (13:31→20:31)
[2019-04-02] MEDS: POTASSIUM CHLORIDE 100 ML IVPB SCH ×2 (13:32→16:01)
--- NOTE | 2019-04-02 16:23 | CONS ---
Assessment/Plan Assessment/Plan Hospital Course (Demo Recall) 83 yo presenting with left shoulder pain and continued gradual rise of troponin. This could be a small NSTEMI versus demand mediated troponin release. Impression: Elevated troponin - type 2 PA vs small thrombotic NSTEMI Atrial fibrillation, rate controlled Cardiomyopathy - per , pt has h/o CHF and weak heart muscle Dysphagia and unsafe to take pills Recommendations: Given his advanced dementia, and stable cardiac status at present, would pursue conservative therapy. Would not draw further troponins as that will not change his course of care, he is not a candidate for invasive angiography Continue beta blockade IV for now as he is NPO, for heart rate control and for cardiomyopathy. Is also on Lovenox. If able to take po meds at some point, would initiate statin therapy and clarify statin "allergy" Would also add kalli/arb once able to take po Consider clarification of goals of care with DPOA Consultation Date/Type/Reason Admit Date/Time Mar 29, 2019 at 18:22 Initial Consult Date 03/30/19 Type of Consult Cardiology Requesting Provider: KAYLIN JAMES MD Date/Time of Note DATE: 04/02/19 TIME: 16:20 24 HR Interval Summary Free Text/Dictation Patient barely arousable to voice, goes right back to sleep. Subjective hx not possible: pt non-verbal Exam/Review of Systems Vital Signs Vitals Vital Signs Date Temp Pulse Resp B/P (MAP) Pulse Ox O2 O2 Flow FiO2 Time Delivery Rate 04/02/19 98.5 56 18 96/72 (80) 90 15:57 04/02/19 Nasal 2.0 08:10 Cannula Intake and Output 04/01/19 04/01/19 04/02/19 1515:00 23:00 07:00 OutputOutput Total 400 ml 400 ml BalanceBalance -400 ml -400 ml Exam Constitutional: non-verbal Head: normocephalic, atraumatic Eyes: other (sclerae erythematous) ENMT: nl external ears & nose; No nl lips & teeth (poor dentition) Neck: No jvd, No bruits Respiratory: clear to auscultation (anteriorly) Cardiovascular: irregular rhythm Gastrointestinal: soft, non-tender Musculoskeletal: other (legs thin) Extremities: No edema Neurological: lethargic Skin: rash or lesions Labs Result Diagram: 04/02/1932 04/02/19 0532 Results 24hrs Laboratory Tests Test 04/02/19 05:32 White Blood Count 11.8 #H Red Blood Count 5.59 Hemoglobin 13.9 L Hematocrit 41.2 L Mean Corpuscular Volume 73.7 L Mean Corpuscular Hemoglobin 24.9 L Mean Corpuscular Hemoglobin Concent 33.7 Red Cell Distribution Width 20.4 H Platelet Count 123 L Mean Platelet Volume Immature Granulocytes % 2.900 H Neutrophils % Segmented Neutrophils % (Manual) 57 Band Neutrophils % (Manual) 32 H Lymphocytes % Lymphocytes % (Manual) 4 L Monocytes % Monocytes % (Manual) 4 Eosinophils % Eosinophils % (Manual) 3 Basophils % Nucleated Red Blood Cells % 0.3 H Immature Granulocytes # 0.340 H Neutrophils # Neutrophils # (Manual) 7.2 Band Neutrophils # 3.7 H Lymphocytes (Manual) 0.4 L Lymphocytes # Monocytes # Monocytes # (Manual) 0.4 Eosinophils # Basophils # Nucleated Red Blood Cells # Platelet Estimate DECREASED Giant Platelets 26 H Polychromasia 1+ Poikilocytosis 3+ Anisocytosis 2+ Macrocytosis 2+ Sodium Level 147 H Potassium Level 3.2 L Chloride Level 111 H Carbon Dioxide Level 25 Anion Gap 11 Blood Urea Nitrogen 54 H Creatinine 1.22 Est Glomerular Filtrat Rate mL/min Glucose Level 155 # Calcium Level 8.4 Phosphorus Level 4.3 Magnesium Level 2.0 Troponin I 0.469 *H Medications Medications Current Medications IV Flush (NS 3 ml) 3 ml PER PROTOCOL IV ; Start 03/29/19 at 19:30 Ondansetron HCl (Zofran Inj) 4 mg Q6H PRN IV NAUSEA/VOMITING; Start 03/29/19 at 19:30 Acetaminophen (Tylenol Tab) 650 mg Q6H PRN PO .PAIN 1-3 OR TEMP; Start 03/29/19 at 19:30; Status Hold Amantadine HCl (Symmetrel) 100 mg Q12H PO ; Start 03/29/19 at 19:30; Status Hold Ascorbic Acid (Vitamin C) 500 mg DAILY PO ; Start 03/30/19 at 09:00; Status Hold Bisacodyl (Dulcolax Supp) 10 mg DAILY PRN LA constipation; Start 03/29/19 at 19:30 Cholecalciferol (Vitamin D) 2,000 unit DAILY PO ; Start 03/30/19 at 09:00; Status Hold Cyanocobalamin (Vitamin B12) 1,000 mcg DAILY PO ; Start 03/30/19 at 09:00; Status Hold Docusate Sodium (Colace) 100 mg BID PO ; Start 03/29/19 at 21:00 Donepezil HCl (Aricept) 10 mg QHS PO ; Start 03/29/19 at 21:00 Finasteride (Proscar) 5 mg QHS PO ; Start 03/29/19 at 21:00 Tamsulosin HCl (Flomax) 0.4 mg HS PO ; Start 03/29/19 at 21:00 Thiamine HCl (Vitamin B1) 100 mg DAILY PO ; Start 03/30/19 at 09:00 Tramadol HCl (Ultram) 50 mg BID PRN PO PAIN; Start 03/29/19 at 19:30 Melatonin (Melatonin) 6 mg HS PO ; Start 03/29/19 at 21:00 Enoxaparin Sodium (Lovenox) 65 mg Q12 SC Last administered on 04/02/19at 08:22; Admin Dose 65 MG; Start 03/29/19 at 21:00 Aspirin (Aspirin) 81 mg DAILY PO ; Start 03/30/19 at 09:00; Status Hold Pantoprazole (Protonix Tab) 40 mg BID PO ; Start 03/30/19 at 06:00; Status Hold Hydralazine HCl (Apresoline) 10 mg Q4H PRN IV ELEVATED BLOOD PRESSURE; Start 03/29/19 at 22:00 Diclofenac Sodium (Voltaren 1% Gel) 2 gm QID TP Last administered on 04/02/19at 12:15; Admin Dose 2 GM; Start 03/30/19 at 00:00 Aspirin (Aspirin) 81 mg DAILY LA Last administered on 03/31/19at 10:03; Admin Dose 81 MG; Start 03/30/19 at 09:00 Metoprolol Tartrate (Lopressor) 2.5 mg Q6 IV Last administered on 04/02/19at 12:12; Admin Dose 2.5 MG; Start 03/30/19 at 06:00 Miscellaneous Information (Pending Santyl Order For Wound Care) This patient sawyer... PRN PRN XX WOUND CARE; Start 03/31/19 at 13:00 Collagenase (Santyl) 1 applic DAILY TOP Last administered on 04/02/19at 08:07; Admin Dose 1 APPLIC; Start 03/31/19 at 13:00 Morphine Sulfate (morphine) 1 mg Q4H PRN IV SEVERE PAIN LEVEL 7-10; Start 04/01/19 at 14:30 Dextrose/Sodium Chloride 1,000 ml @ 60 mls/hr [id number] IV Last administered on 04/02/19at 08:07; Admin Dose 60 MLS/HR; Start 04/01/19 at 14:30 Potassium Chloride 100 ml @ 50 mls/hr Q2H IVPB Last administered on 04/02/19at 16:01; Admin Dose 50 MLS/HR; Start 04/02/19 at 13:00; Stop 04/02/19 at 16:59 Ciprofloxacin HCl (Ciloxan 0.3% Oph) 1 drop BID BOTH EYES Last administered on 04/02/19at 13:31; Admin Dose 1 DROP; Start 04/02/19 at 14:00; Stop 04/05/19 at 13:59 NIA JIMENEZ Apr 02, 2019 16:23
[2019-04-02] MEDS: TAMSULOSIN (SR) 0.4 MG CAP PO SCH (20:25)
[2019-04-02] MEDS: DONEPEZIL 10 MG TAB PO SCH (20:25)
[2019-04-02] MEDS: FINASTERIDE 5 MG TAB PO SCH (20:25)
[2019-04-02] MEDS: MELATONIN 3 MG TABLET PO SCH (20:25)
[2019-04-03] VITALS (12 sets, daily range): BP systolic 60–117; BP diastolic 16–56; PULSE 39–174; RESP 18–23
[2019-04-03] MEDS: METOPROLOL 5 MG INJ IV SCH (00:27)
[2019-04-03] MEDS ORDERED: EPINEPHrine 0.1 MG/ML SYG ONE ×3 (03:41→04:49)
[2019-04-03] MEDS ORDERED: AMIODARONE 150MG/D5W BOLUS 100 ML IV ONE (04:30)
[2019-04-03] MEDS ORDERED: NORepinephrine 8MG/250 ML (PMX 250 ML ONE (04:34)
[2019-04-03] MEDS ORDERED: EPINEPHrine 4 MG in SOD CHLORIDE 0.9% 246 ML IV SCH (05:00)
[2019-04-03] MEDS ORDERED: NORepinephrine 8MG/250 ML (PMX 250 ML IV PRN (05:00)
--- NOTE | 2019-04-03 05:21 | EN ---
Date/Time of Note Date/Time of Note DATE: 04/03/19 TIME: 05:19 ER Progress Note I was called to the patient's bedside because of a CODE BLUE. In short: Patient had a cardiac arrest General: Unresponsive Head: Normocephalic, atraumatic Eyes: Fixed and dilated pupils ENT: Moist mucous membranes Neck: Supple, no lymphadenopathy Respiratory: No spontaneous respiratory activity Cardiovascular: No spontaneous cardiac activity Abdominal: Soft, non-protuberant, no pulsatile mass : Deferred MSK: No spontaneous motor activity Neurologic: No spontaneous neurologic activity Skin: No evidence of trauma Cardiopulmonary Resuscitation by me: See code documentation for specific details. ACLS and BLS were performed with high quality chest compressions and minimal interruptions. Reversible causes were assessed and treated. PROCEDURE(S): Intubation Note: Indication: Airway protection Consent: This was an emergent situation, implied consent was observed RSI Medications: None required Tube size: 7.0 Secured at: 22 Procedure: Endotracheal intubation was performed. The patient was preoxygenated with supplemental oxygen, the room was set up with emergency airway equipment including [id number], suction, and adjunct airways. Direct visualization of the cords was performed with direct laryngoscopy using video laryngoscope, insertion of the endotracheal tube through the cords was visualized. Bilateral breath sounds were auscultated, color change was observed. The tube was then secured in a postintubation chest x-ray was ordered. The patient tolerated the procedure well there were no complications. CODE BLUE events: Patient received multiple doses of epinephrine. The patient was being managed by Dr. Monroy at the bedside. I intubated the patient. He has been continuing the code. Please see his documentation. Disposition: Patient had return of spontaneous circulation and was transferred to the ICU Diagnostic impression: Cardiac arrest Acute respiratory failure DAY NEIL MD Apr 03, 2019 05:21
--- NOTE | 2019-04-03 06:55 | EN ---
Date/Time of Note Date/Time of Note DATE: 04/03/19 TIME: 06:50 Event Note Medicine Medicine Event Note An SUPERVIS[employer] was called around 3:23am. When I walked into the room, nurse was already calling for CODE BLUE. Patient quickly became bradycardic and lost his pulse. ROSC after several rounds of epinephrine, atropine x1 and shocked x1. Patient was intubated by Dr. Mora, ER physician. Patient was then transferred to ICU and unfortunately after an hour and a half later, he was found to be in PEA. Initially he was successfully resuscitated, however 5 minutes after, we lost his pulse again. He was resuscitated again for 18minutes with several rounds of epinephrine, chest compressions and shock x1. At that moment, son and came to the hospital. Per the son wish, resuscitative measure were halted. Patient was pronounced at 5:12 AM on 04/03/2019 TERRY SMITH MD Apr 03, 2019 06:55
--- NOTE | 2019-04-03 08:44 | DES ---
Date/Time of Note Date/Time of Note DATE: 04/03/19 TIME: 08:36 Discharge/ Summary Admission/Discharge Info Admit Date/Time Mar 29, 2019 at 18:22 Final Diagnosis #Elevated troponin: Per cardiology team this is likely a type 2 UT vs small thrombotic NSTEMI. EKG with RBBB and inferior Q waves #Shoulder pain- L shoulder XR shows high-riding humerus; possible rotator cuff injury- However no fracture. #HTN #BPH #A fib #dementia/Parkinson's ds Preliminary Cause of 1. Respiratory distress: Minutes 2. Elevated troponin: Non-STEMI versus type II event per cardiology team: Days Hospital Course 83 yo man Parkinsons and dementia was brought in from care home facility because of left shoulder pain and also with elevated troponins. Patient was also thought to have some slurred speech, however head CT was performed early on during admission and did not show any acute findings. Regarding his elevated troponins, cardiology team was consulted and they determined this was likely a type II event versus small thrombotic non-ST elevation UT. Patient was placed on IV beta-balta and Lovenox subcu twice daily for conservative treatment. They felt that heart catheterization would have been more risky because of patient's advanced age, dementia, and overall other comorbidities. Patient was monitored on telemetry unit. He was also seen by speech therapy team who re commended n.p.o. treatment. Over the course of his hospital stay he also work with physical therapy. His vital signs and labs were checked and electrolytes were repleted. His vital signs remained stable as well as labs. However he did remain n.p.o. because he was not able to pass swallow eval during the few attempts that were made. Family was updated on the patient's condition as well including the patient's as well as the DURABLE POWER OF CNC MACHINIST the son. However on the evening of April 02, 2019 patient developed cardiac arrest and had to be transferred to the ICU where CPR and resuscitative efforts were attempted during the late evening and help desk consultant of April 03, 2019. Despite best efforts however patient unfortunately at 5:12 AM on April 03, 2019 2D ECHO: Conclusions: Moderate concentric left ventricular hypertrophy. Severely reduced left ventricular systolic function with global hypokinesis. Dilated right ventricle with severely reduced systolic function. Mild left atrial enlargement. Severe right atrial enlargement. Moderate mitral regurgitation. Heavily calcified aortic valve with at least moderate aortic stenosis with trace regurgitation. Moderate tricuspid regurgitation and severe pulmonary hypertension. Dilated IVC which does not collapse suggests elevated right atrial pressures. Pending Labs/Cultures Laboratory Tests Test 04/03/19 03:41 Bedside Glucose 121 mg/dL (70-220) JHON ROD Apr 03, 2019 08:44
== END 2019-04-03 11:16 | disposition expired ==
LOC: E/R 15:57 → SUATTDRO 18:15 → TEL 18:22 → CANRESERV 18:53 → ICU 04-03 04:06
PROVIDERS: ADMIT Internal Medicine; ATTEND Internal Medicine
PROC: 0BH17EZ Insertion of Endotracheal Airway into Trachea, Via Natural or Artificial Opening (ICD-10-PCS; principal; 2019-04-03)
PROC: 5A1935Z Respiratory Ventilation, Less than 24 Consecutive Hours (ICD-10-PCS; 2019-04-03)
PROC: 5A12012 Performance of Cardiac Output, Single, Manual (ICD-10-PCS; 2019-04-03)
DX: I21.A1 Myocardial infarction type 2 (principal); E44.0 Moderate protein-calorie malnutrition; I42.9 Cardiomyopathy, unspecified; I21.4 Non-ST elevation (NSTEMI) myocardial infarction; I46.9 Cardiac arrest, cause unspecified; Z68.21 Body mass index [BMI] 21.0-21.9, adult; G20 Parkinson's disease; F02.80 Dementia in other diseases classified elsewhere, unspecified severity, without behavioral disturbance, psychotic disturbance, mood disturbance, and anxiety; I25.10 Atherosclerotic heart disease of native coronary artery without angina pectoris; I11.0 Hypertensive heart disease with heart failure; I50.9 Heart failure, unspecified; N40.1 Benign prostatic hyperplasia with lower urinary tract symptoms; E86.0 Dehydration; R47.81 Slurred speech; I48.91 Unspecified atrial fibrillation; Z86.718 Personal history of other venous thrombosis and embolism; R13.10 Dysphagia, unspecified; S46.002A Unspecified injury of muscle(s) and tendon(s) of the rotator cuff of left shoulder, initial encounter; X58.XXXA Exposure to other specified factors, initial encounter
CPT/HCPCS: 31500; 70450; 71045; 73030; 73090; 80048; 80053; 80061; 82550; 82553; 82962; 83036; 83690; 83735; 84100; 84443; 84484; 85025; 87081; 92526; 92610; 92950; 93005; 93306; 93971; 94002; 94770; 96374; 97163; J0171; J0282; J1885; J2270; J3480; J7030; J7040; J7042; J7050; P9047